=== PATIENT | male | born 1965 | race African-American/Black ===

== ENCOUNTER 2020-07-12 12:08 | Outpatient (REF) | payer MEDICARE, MEDICAID, SELFPAY ==
[2020-07-12 12:36] LABS: COVID-19 Test Negative (Negative)
== END 2020-07-12 12:09 | disposition home or self-care (01) ==
LOC: HO.LAB 12:08
PROVIDERS: Visit Provider Internal Medicine
DX: Z20.828 Contact with and (suspected) exposure to other viral communicable diseases (principal)
CPT/HCPCS: 87635

== ENCOUNTER 2020-07-19 10:42 | Outpatient (REF) | payer MEDICARE, MEDICAID, SELFPAY ==
[2020-07-19 11:23] LABS: COVID-19 Test Negative (Negative)
== END 2020-07-19 10:43 | disposition home or self-care (01) ==
LOC: HO.LAB 10:42
PROVIDERS: Visit Provider Internal Medicine
DX: Z20.828 Contact with and (suspected) exposure to other viral communicable diseases (principal)
CPT/HCPCS: 87635

== ENCOUNTER 2020-10-03 09:10 | Emergency (ER) | payer MEDICARE, MEDICAID, SELFPAY ==
--- NOTE | 2020-10-03 09:15 | XR_ITS ---
EXAMINATION: XR FOOT, RIGHT CLINICAL INFORMATION: Right foot pain. COMPARISON: None TECHNIQUE: AP, lateral, and oblique views of the right foot. FINDINGS: There is mild hallux valgus deformity first MTP joint. No visible acute fracture, dislocation or subluxation seen. There is mild loss of second and third tarsometatarsal joint space likely degenerative arthritic changes. No visible acute fracture or dislocation seen. The soft tissues are normal. XR/XR foot RT min 3V IMPRESSION: Mild degenerative changes second and third tarsometatarsal joint space. No visible acute fracture or dislocation seen.
[2020-10-03 09:31] VITALS: BP 140/87; PULSE 68; RESP 14; TEMP 36.4; O2SAT 95; BMI 36.6
--- NOTE | 2020-10-03 09:48 | ED.LOWEXIN ---
HPI - Extremity Injury (Lower) General Chief Complaint: Extremity Injury, Lower Stated Complaint: rt foot inj Time Seen by Provider: 10/03/20 09:15 Source: patient Mode of arrival: ambulatory Limitations: no limitations History of Present Illness HPI Narrative: 54-year-old male presenting to the ED after he tripped on some wires and injured his right foot now with pain to the base of the 5th metatarsal of the right foot. Denies any other injuries complaints or concerns. Denies head injury or loss of consciousness. Related Data Previous Rx's Medication Instructions Recorded ibuprofen 800 mg PO Q8H PRN #14 tab 10/03/20 Allergies Allergy/AdvReac Type Severity Reaction Status Date / Time GREGG Inhibitors Allergy Severe ANAPHYLAXIS Unverified 06/14/20 15:39 [GREGG INHIBITORS] lisinopril Allergy Unknown Verified 12/06/18 00:00 gregg inhibitors Allergy Unknown Uncoded 12/06/18 00:00 Review of Systems Review of Systems: Constitutional : No changes in activity, No lethargy ENT/Mouth : No Ear Pain, No Nasal discharge/drainage Eyes: No Eye Pain, No Swelling, No Redness, No Foreign Body, No Vision Changes Cardiovascular : No Chest Pain, No SOB Respiratory : No Cough Gastrointestinal : No Nausea, No Vomiting, No abdominal Pain Genitourinary : No Dysuria, No Urinary Frequency, No Urinary Incontinence, No Urgency, No Flank Pain Musculoskeletal : + joint pain, No neck stiffness, No back pain/injury Skin : No lacerations Neuro : No unsteady gait, No Paresthesias, No Loss of Consciousness, No altered mental status, No Headache Yes all other systems are reviewed and are negative [facility] Past Medical History Attestation statement: The following information was validated with the patient. Surgical History H/O shoulder surgery H/O wrist surgery Hx of foot surgery Hx of hernia repair Social History Social History Advance Directives: No Advance Directives Information Provided: No Physical Exam Vital Signs: Vital Signs: Last Vital Signs Temp 97.5 F 10/03/20 09:31 Pulse 68 10/03/20 09:31 Resp 14 10/03/20 09:31 BP 140/87 H 10/03/20 09:31 Pulse Ox 95 10/03/20 09:31 Body Mass Index 36.6 Vital signs have been reviewed as normal and appeared to be correct. Blood pressure normal. Heart rate normal. Respiration rate normal. Temperature normal. Oxygen saturation normal. Appearance: Alert. Oriented. No acute distress. Head: Normal external exam. Normocephalic. Atraumatic. Able to rotate head bilaterally. Eyes: PERRLA. EOMI. No nystagmus noted. Conjunctiva and sclera normal. Eyelids normal. Corneal reflex normal. ENT: EAC normal. No nasal discharge noted. TM's Normal. Hearing normal. Pharynx normal. Uvula midline. tongue midline. Moist mucous membranes. No trismus noted. No drooling noted. No muffled voice noted. Neck: Normal inspection. Neck supple. FROM. Nontender. CVS: Normal heart rate and rhythm. Heart sound normal. Pulses normal throughout. Respiratory: No respiratory distress. Painless inspiration. Breath sounds normal. No wheezes/rales/rhonchi noted. Chest nontender. Abdomen: Soft and nontender. Bowel sounds normal in all 4 quadrants. No distention noted. No organomegaly noted. No visible injury noted. Back: No tenderness noted. Full range of motion noted. Skin: Skin warm and dry. Normal skin color. Normal skin turgor. No rashes/lesions/lacerations noted. Extremities: At the base of the right 5th metatarsal patient has mild soft tissue swelling and tenderness to palpation. No obvious deformities noted. all Extremities exhibit normal range of motion and all other Extremities are nontender. Neuro: Oriented X 3. No motor deficit. No sensory deficit. Reflexes normal. Moving all extremities. No focal motor deficits. Speech normal. Gait normal. Strength 5/5 throughout. Muscle tone normal throughout. Course Course Course Narrative: 54-year-old male presenting to the ED with complaints of right foot pain/swelling after he tripped on some wires. Denies head injury or loss of consciousness. Has a normal steady gait no obvious deformities. Awaiting x-ray. Will re-evaluate. Reevaluation(s) Reevaluation #1: X-ray negative for any acute processes will DC home with symptomatic treatment alone instructions return if any new or worsening symptoms to follow up with primary care provider. Patient understands agrees the plan. Time: 10:24 MDM - Extremity Injury (Lower) Medical Records Attestation: I reviewed the patient's medical records. Imaging Data Right foot x-ray: Attestation: I personally reviewed and interpreted this imaging study as follows: Radiologist's impression: FINDINGS: There is mild hallux valgus deformity first MTP joint. No visible acute fracture, dislocation or subluxation seen. There is mild loss of second and third tarsometatarsal joint space likely degenerative arthritic changes. No visible acute fracture or dislocation seen. The soft tissues are normal. XR/XR foot RT min 3V IMPRESSION: Mild degenerative changes second and third tarsometatarsal joint space. No visible acute fracture or dislocation seen. Discharge Plan Discharge Clinical Impression: Foot sprain Patient Disposition: Home, Self-Care Instructions: Foot Sprain (ED) Prescriptions: New ibuprofen 800 mg tablet 800 mg PO Q8H PRN (Reason: pain) Qty: 14 RF: 0 Referrals: Balbir Childs MD [Physician] - 2 weeks (if symptoms persist longer than 2-3 weeks ) Print Language: Croatian
== END 2020-10-03 10:32 | disposition home or self-care (01) ==
PROVIDERS: Emergency Provider Emergency Medicine
DX: S93.601A Unspecified sprain of right foot, initial encounter (principal); M79.671 Pain in right foot; W01.0XXA Fall on same level from slipping, tripping and stumbling without subsequent striking against object, initial encounter; Y93.9 Activity, unspecified; Y92.9 Unspecified place or not applicable; Y99.9 Unspecified external cause status
CPT/HCPCS: 73630; 99283

== ENCOUNTER 2022-01-12 13:27 | Emergency (ER) | payer MEDICARE, MEDICAID, SELFPAY ==
--- NOTE | ~2022-01-12 | XR_ITS ---
EXAMINATION: XR ANKLE, RIGHT CLINICAL INFORMATION: Posterior ankle pain COMPARISON: None TECHNIQUE: AP, lateral, and mortise views of the right ankle. FINDINGS: The bones and soft tissues are normal. No fracture. Alignment is anatomic. Joint spaces are maintained. No joint effusion. XR/XR ankle RT min 3V IMPRESSION: Normal right ankle.
[2022-01-12 13:31] VITALS: BP 128/92; PULSE 81; O2SAT 97
[2022-01-12 13:44] VITALS: BP 114/77; PULSE 82; RESP 18; TEMP 36.9; O2SAT 94; BMI 35.9
--- NOTE | 2022-01-12 14:06 | ED_ITS ---
HPI - Extremity Injury (Lower) General Chief Complaint: Extremity Injury, Lower Stated Complaint: r foot swelling Time Seen by Provider: 01/12/22 13:52 Source: patient and EMS Mode of arrival: EMS Limitations: no limitations History of Present Illness HPI Narrative: 56-year-old male with a history of diabetes presents to the ER with acute onset of posterior left foot and ankle pain that started yesterday when he was walking. He states the pain has been getting worse and migrated to the front of his ankle and foot. He is now unable to bear any weight on his right foot. He was walking when the pain started and denies hearing any pops or snaps. He denies twisting a rolling his ankle. He is concerned about an Achilles tendon tear or rupture and would like an MRI. MD complaint: ankle injury and foot injury Onset (ago): day(s) (1) Injury: Right: ankle and foot Type of Injury: unknown Place: home Severity: severe Severity scale (1-10): 9 Relieving factors: cold therapy, immobilization and rest Exacerbating factors: weight bearing, movement and palpation Context: walking Associated symptoms: unable to bear weight Other symptoms: none Treatments prior to arrival: cold therapy Related Data Previous Rx's Medication Instructions Recorded ibuprofen 800 mg tablet 800 mg PO Q8H PRN #14 tab 10/03/20 Allergies Allergy/AdvReac Type Severity Reaction Status Date / Time GREGG Inhibitors Allergy Severe ANAPHYLAXIS Unverified 06/14/20 15:39 [GREGG INHIBITORS] lisinopril Allergy Unknown Anaphylaxis Verified 01/12/22 13:46 gregg inhibitors Allergy Unknown Anaphylaxis Uncoded 01/12/22 13:46 Review of Systems Review of Systems: Constitutional: No Fever, No Chills ENT/Mouth: No sore throat, No Rhinorrhea Cardiovascular: No Chest Pain, No SOB, No Orthopnea, No Edema Respiratory: No Cough, No Sputum, No Wheezing, No dyspnea Gastrointestinal: No Nausea, No Vomiting, No abdominal Pain, Musculoskeletal: + joint pain, + Myalgias Skin: No Skin Lesions, No rash Neuro: No Weakness, No Numbness, No Dizziness, No Headache Psych: + Anxiety/Panic, No Depression Heme/Lymph: No Bruising, No Lymphadenopathy PMFSH Past Medical History Surgical History H/O shoulder surgery H/O wrist surgery Hx of foot surgery Hx of hernia repair Social History Social History Advance Directives: No Advance Directives Information Provided: No Physical Exam Vital Signs: Vital Signs: Last Vital Signs Temp 98.4 F 01/12/22 13:44 Pulse 82 01/12/22 13:44 Resp 18 01/12/22 13:44 BP 114/77 01/12/22 13:44 Pulse Ox 94 01/12/22 13:44 BMI result Body Mass Index 35.9 Appearance: Alert. Oriented X3. No acute distress. HEENT: normal inspection CVS: Normal heart rate and rhythm. Pulses normal. Respiratory: No respiratory distress. Skin: Skin warm and dry. Normal skin color. Normal skin turgor. No rashes. Extremities: Normal inspection of the bilateral feet and ankles. Posterior right ankle is tender at the Achilles insertion site. Negative Day test with palpable Achilles tendon intact. No calf tenderness. No swelling of the ankle or foot. Normal range of motion with weakness with plantar flexion and dorsiflexion. Neuro: Oriented X 3. No motor deficit. No sensory deficit. Gait not tested due to pain Course Course Course Narrative: 56-year-old male presents to the ER with posterior right foot and ankle pain that started yesterday while walking and is now radiating to the front of the ankle and foot to the point where he is unable to bear weight on the right foot. Denies any blunt trauma, inversion or eversion injury. No evidence of diabetic foot wound on evaluation. His Achilles tendon appears to be intact with a negative Day test. Will get x-rays for further evaluation. He will most likely need outpatient follow-up with Orthopedics. Reevaluation(s) Reevaluation #1: x-ray is unremarkable. Will place patient in splint given he is unable to bear weight and there was concern for a possible partial Achilles tendon injury. Will refer to orthopedics for evaluation this week. Stable for discharge home with pain control, immobilization and weight-bearing as tolerated status. Patient agrees with plan and is stable for DC. Procedures Orthopedic Splinting/Casting Injury #1: Side: right Lower Extremity Injury Location: lower leg Lower Extremity Immobilizer: posterior splint Other Orthopedic Equipment: crutches Critical Care Time Critical Care Time Critical Care Time: No Discharge Plan Discharge Clinical Impression: Acute foot pain Patient Disposition: Home, Self-Care Instructions: Arthralgia (ED) Additional Instructions: Your x-rays today were normal. On examination your Achilles tendon is intact. Recommend following up with Orthopedics this week for further evaluation. You may bear weight as tolerated - if it is too painful, use the provided crutches Recommend wearing the splint until evaluated by Orthopedics. Take Tylenol 975 mg every 6 hours alternating with Motrin 600-800 mg every 8 hours (take with food). Elevate and ice your foot whenever possible. If you develop new or worsening symptoms call 911 or come back to the ER for further evaluation. Prescriptions: No Action ibuprofen 800 mg tablet 800 mg PO Q8H PRN (Reason: pain) Qty: 14 0RF Referrals: Ramsey Neff PA-C [Physician Regulatory Specialist] - 2 days (right posterior foot pain, possible partial achilles tendon tear?) Stand Alone Forms: Work/School Release
== END 2022-01-12 16:01 | disposition home or self-care (01) ==
PROVIDERS: Emergency Provider Emergency Medicine
DX: M79.671 Pain in right foot (principal); E11.9 Type 2 diabetes mellitus without complications
CPT/HCPCS: 73610; 99283; 99284

== ENCOUNTER → 2022-01-23 10:23 | Outpatient (BNVA) | payer MEDICARE, MEDICAID, SELFPAY | PROVIDERS: Visit Provider Orthopaedic Surgery | DX: M79.671 Pain in right foot (principal) | CPT/HCPCS: 99212 ==

== ENCOUNTER 2022-08-09 09:02 | Emergency (ER) | payer MEDICARE, MEDICAID, SELFPAY ==
--- NOTE | ~2022-08-09 | XR_ITS ---
EXAMINATION: XR CHEST CLINICAL INFORMATION: Shortness of breath COMPARISON: None TECHNIQUE: AP portable view of the chest was obtained. FINDINGS: Linear scarring is seen at both lung bases. No confluent parenchymal disease is identified. No pneumothorax or pleural effusion. Heart normal size. No evidence of pulmonary edema. XR/XR chest 1V IMPRESSION: No significant acute parenchymal disease.
[2022-08-09 09:04] VITALS: BP 129/77; PULSE 80; RESP 16; TEMP 36.8; BMI 34.5
[2022-08-09 09:19] LABS: MANUAL DIFF FLAG NO
[2022-08-09 09:20] LABS: Basophils Percent Auto 0.6 % (0-2); Eosinophils Absolute Auto 0.1 X10*3/uL (0.0-0.4); Eosinophils Percent Auto 1.3 % (0-4); Hematocrit 36.1 % (42.0-52.0); Hemoglobin 12.8 g/dl (14.0-18.0); Imm Gran Abs Auto 0.02 X10*3/uL (0.00-0.03); Imm Gran Pct Auto 0.4 % (0.0-0.4); Lymphocytes Absolute Auto 2.1 X10*3/uL (1.2-4.9); Lymphocytes Percent Auto 39.4 % (20-40); Mean Corpuscular HGB Conc 35.5 g/dl (31.0-36.0); Mean Corpuscular Hemoglobin 28.2 pg (27.0-33.0); Mean Corpuscular Volume 79.5 fL (80.0-98.0); Mean Platelet Volume 8.7 fL (9.4-12.4); Monocytes Absolute Auto 0.4 X10*3/uL (0.1-1.2); Monocytes Percent Auto 8.2 % (2-11); Neutrophils Absolute Auto 2.7 x10*3/uL (2.0-8.3); Neutrophils Percent Auto 50.1 % (45-73); Platelet Count 289 X10*3/uL (160-400); Red Blood Count 4.54 X10*6/uL (4.60-5.80); Red Cell Distribution Width 14.3 % (11.0-16.0); White Blood Count 5.4 X10*3/uL (4.8-10.8)
[2022-08-09 09:34] LABS: Anion Gap 16 (12-20); Blood Urea Nitrogen 27 mg/dL (9-16); Calcium 9.7 mg/dL (8.4-10.2); Carbon Dioxide 27 mmol/L (22-29); Chloride 97 mmol/L (96-108); Creatinine Clr Calc Pharmacy 60.2; Estimated Glomerular Filt Rate 39; Glucose Random 140 mg/dL (60-115); Potassium 3.5 mmol/L (3.3-5.1); Sodium 136 mmol/L (135-145)
[2022-08-09 09:42] LABS: COVID-19 Test Negative (Negative); IDNOW Serial# 16C4AD1C; Troponin-I High Sensitivity < 3.5 ng/L (<3.5-35.0)
--- NOTE | 2022-08-09 09:53 | ED.GENADULT ---
HPI - General Adult General Chief complaint: Dyspnea Stated complaint: diff breathing Time Seen by Provider: 08/09/22 09:23 Source: patient Mode of arrival: ambulatory Limitations: no limitations History of Present Illness HPI narrative: 56-year-old male with history of diabetes and hypertension presented with 1 week of left-sided pleuritic chest pain. Left-sided chest pain started about a week ago pain is worsening with taking a deep breath nothing relieves the pain, patient did not have lower extremity swelling or tenderness, no recent travel, no history of PE or DVT. Patient been having a mild coughing with no production of sputum, no fever or chills. Patient has been taking Tylenol for relieving the pain and be able to breathe. History of partial nephrectomy. Related Data Previous Rx's Medication Instructions Recorded ibuprofen 800 mg tablet 800 mg PO Q8H PRN pain #14 tabs 10/03/20 oxycodone 5 mg tablet 5 mg PO BID PRN pain #10 tabs 08/09/22 Allergies Allergy/AdvReac Type Severity Reaction Status Date / Time GREGG Inhibitors Allergy Severe ANAPHYLAXIS Unverified 01/23/22 10:36 [GREGG INHIBITORS] lisinopril Allergy Unknown Anaphylaxis Verified 01/23/22 10:36 gregg inhibitors Allergy Unknown Anaphylaxis Uncoded 01/23/22 10:36 Review of Systems Review of Systems: All other systems are reviewed and are negative Constitutional: Reports as per HPI and Reports no additional constitutional complaints Eyes: Reports as per HPI and Reports no additional eye complaints Reports system reviewed and no additional complaints, except as documented Cardiovascular: Reports as per HPI and Reports no additional cardiovascular complaints Respiratory: Reports as per HPI and Reports no additional respiratory complaints Gastrointestinal: Reports as per HPI and Reports no additional gastrointestinal complaints Genitourinary: Reports no additional female genitourinary complaints Musculoskeletal: Reports no additional musculoskeletal complaints Skin/Breast: Reports system reviewed and no additional complaints, except as docu Psychiatric: Reports no additional psychiatric complaints Endocrine: Reports no additional endocrine complaints Hematologic/Lymphatic: Reports no additional hematologic/lymphatic complaints Allergic/Immunologic: Reports no additional allergic/immunologic complaints Reports system reviewed and no additional complaints, except as documented and Reports Abnormal speech present [facility] Past Medical History Medical History Diabetes High blood pressure Surgical History H/O shoulder surgery H/O wrist surgery Hx of foot surgery Hx of hernia repair Social History Social History Alcohol intake: never Patient Tobacco Use Status: Never used Tobacco Smoked in Last 30 Days: No Use of substances other than those prescribed or required for medical reasons: No Advance Directives: No Advance Directives Information Provided: No Current occupational status: employed 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 Blood pressure normal. Heart rate normal. Respiration rate normal. Temperature normal. Oxygen saturation normal. Appearance: Alert. Oriented X3. No acute distress. Head: Normal external exam. Normocephalic. Atraumatic. No Fajardo signs noted. No raccoon eyes noted Eyes: PERRLA. EOMI. Conjunctiva and sclera normal. Eyelids normal. ENT: TM's Normal. Pharynx normal. Uvula midline. Moist mucous membranes. No trismus noted. No drooling noted. No muffled voice noted. Neck: Normal inspection. Neck supple. FROM. No adenopathy. Thyroid Normal. No meningeal signs. No neck mass noted. CVS: Normal heart rate and rhythm. Heart sound normal. No murmurs noted. Pulses normal throughout. Respiratory: No respiratory distress. Painless inspiration. Breath sounds normal. No wheezes/rales/rhonchi noted. Chest nontender. No accessory muscle usage noted or decreased air movement noted. Abdomen: Soft and nontender. Bowel sounds normal in all 4 quadrants. No distention noted. No organomegaly noted. No visible injury noted. Back: No CVA tenderness. Full range of motion noted. Skin: Skin warm and dry. Normal skin color. Normal skin turgor. No rashes/lesions/lacerations noted. Extremities: No lower extremity edema. Extremities exhibit normal range of motion. Extremities nontender. Neuro: Oriented X 3. Cranial nerve exam: II-XII are grossly intact No motor deficit. No sensory deficit. Reflexes normal. Course Course Course Narrative: 56-year-old male came in for 1 week of left chest pleuritic pain only with respiration, patient has unremarkable workup and chest x-ray, pain is likely secondary to pleurisy, no risk for PE or DVT with a negative D-dimer, patient has been taking NSAIDs because patient had history of partial nephrectomy and elevation of her renal function test patient was advised not to take NSAIDs, patient has been taking Tylenol for the last week I would prescribe oxycodone to help with pain and avoid using too much of Tylenol. Medications Administered Discontinued Medications Generic Name Dose Route Start Last Admin Trade Name Alvinoq PRN Reason Stop Dose Admin Morphine Sulfate 2 mg 08/09/22 09:52 08/09/22 11:20 Morphine Sulfate 2 Mg/Ml Cartridge IVPUSH 08/09/22 09:53 2 mg ONCE ONE Administration Protocol Medical Decision Making Lab Data Lab results reviewed: Yes I reviewed the patient's lab results. Result diagrams: 08/09/22 09:14 08/09/22 09:14 Labs: Lab Results 08/09/22 08/09/22 08/09/22 Range/Units 09:14 09:14 09:14 WBC 5.4 (4.8-10.8) X10*3/uL RBC 4.54 L (4.60-5.80) X10*6/uL Hgb 12.8 L (14.0-18.0) g/dl Hct 36.1 L (42.0-52.0) % MCV 79.5 L (80.0-98.0) fL MCH 28.2 (27.0-33.0) pg MCHC 35.5 (31.0-36.0) g/dl RDW 14.3 (11.0-16.0) % Plt Count 289 (160-400) X10*3/uL MPV 8.7 L (9.4-12.4) fL Immature Gran % (Auto) 0.4 (0.0-0.4) % Neut % (Auto) 50.1 (45-73) % Lymph % (Auto) 39.4 (20-40) % Charles % (Auto) 8.2 (2-11) % Eos % (Auto) 1.3 (0-4) % Baso % (Auto) 0.6 (0-2) % Lymph # (Auto) 2.1 (1.2-4.9) X10*3/uL Charles # (Auto) 0.4 (0.1-1.2) X10*3/uL Eos # (Auto) 0.1 (0.0-0.4) X10*3/uL Baso # (Auto) 0.0 (0.0-0.2) X10*3/uL Abs Immat Gran (auto) 0.02 (0.00-0.03) X10*3/uL Absolute Neuts (auto) 2.7 (2.0-8.3) x10*3/uL Absolute Nucleated RBC 0.000 (0.0-0.012) X10*3/uL Nucleated RBC % (auto) 0.0 (0.0-0.2) /100WBC D-Dimer High Sensitivty NG/ML Sodium 136 (135-145) mmol/L Potassium 3.5 (3.3-5.1) mmol/L Chloride 97 (96-108) mmol/L Carbon Dioxide 27 (22-29) mmol/L Anion Gap 16 (12-20) BUN 27 H (9-16) mg/dL Creatinine 1.82 H (0.5-1.4) mg/dL Estim Creat Clear Calc 60.2 Estimated GFR 39 Random Glucose 140 H (60-115) mg/dL Calcium 9.7 (8.4-10.2) mg/dL Troponin I High Sens < 3.5 (<3.5-35.0) ng/L B-Natriuretic Peptide (<100) pg/mL COVID-19 (ALINE) (Negative) COVID-19 Clin Com 08/09/22 08/09/22 08/09/22 Range/Units 09:14 10:25 10:25 WBC (4.8-10.8) X10*3/uL RBC (4.60-5.80) X10*6/uL Hgb (14.0-18.0) g/dl Hct (42.0-52.0) % MCV (80.0-98.0) fL MCH (27.0-33.0) pg MCHC (31.0-36.0) g/dl RDW (11.0-16.0) % Plt Count (160-400) X10*3/uL MPV (9.4-12.4) fL Immature Gran % (Auto) (0.0-0.4) % Neut % (Auto) (45-73) % Lymph % (Auto) (20-40) % Charles % (Auto) (2-11) % Eos % (Auto) (0-4) % Baso % (Auto) (0-2) % Lymph # (Auto) (1.2-4.9) X10*3/uL Charles # (Auto) (0.1-1.2) X10*3/uL Eos # (Auto) (0.0-0.4) X10*3/uL Baso # (Auto) (0.0-0.2) X10*3/uL Abs Immat Gran (auto) (0.00-0.03) X10*3/uL Absolute Neuts (auto) (2.0-8.3) x10*3/uL Absolute Nucleated RBC (0.0-0.012) X10*3/uL Nucleated RBC % (auto) (0.0-0.2) /100WBC D-Dimer High Sensitivty < 150 NG/ML Sodium (135-145) mmol/L Potassium (3.3-5.1) mmol/L Chloride (96-108) mmol/L Carbon Dioxide (22-29) mmol/L Anion Gap (12-20) BUN (9-16) mg/dL Creatinine (0.5-1.4) mg/dL Estim Creat Clear Calc Estimated GFR Random Glucose (60-115) mg/dL Calcium (8.4-10.2) mg/dL Troponin I High Sens (<3.5-35.0) ng/L B-Natriuretic Peptide < 10 (<100) pg/mL COVID-19 (ALINE) Negative (Negative) COVID-19 Clin Com See Note Imaging Data Chest x-ray: Attestation: I personally reviewed and interpreted this imaging study as follows: Radiologist's impression: No significant acute parenchymal disease. Discharge Plan Discharge Clinical Impression: Pleurisy Patient Disposition: Home, Self-Care Instructions: Pleurisy (ED) Prescriptions: New oxycodone 5 mg tablet 5 mg PO BID PRN (Reason: pain) Qty: 10 0RF Rx Instructions: Partial Fill upon patient request. No Action ibuprofen 800 mg tablet 800 mg PO Q8H PRN (Reason: pain) Qty: 14 0RF Referrals: Jeet Florez PA [Primary Care Provider] - Interventions: ED Discharge Assessment Last Done: 08/09/22 13:45
[2022-08-09 10:38] LABS: D Dimer High Sensitivity < 150 NG/ML
[2022-08-09 10:46] VITALS: BP 124/72; PULSE 64; RESP 14; TEMP 36.6; O2SAT 96
[2022-08-09 10:48] LABS: B Type Natriuretic Peptide < 10 pg/mL (<100)
[2022-08-09] MEDS: Morphine Sulfate 2 MG/ML CARTRIDGE IVPUSH (11:20)
[2022-08-09 12:43] VITALS: BP 123/79; PULSE 56; RESP 14; TEMP 36.5; O2SAT 95
--- NOTE | 2022-08-09 13:35 | PC.NURSE ---
pt is a/o x 4 no sob/danny noted lungs - cta. speaks in full sentences. heart sounds regular. abd obese, soft and non-tender. bs + x 4 quads no edema noted.
== END 2022-08-09 13:45 | disposition home or self-care (01) ==
PROVIDERS: Emergency Provider Emergency Medicine; PCP Physician Assistant Medical
DX: R09.1 Pleurisy (principal); R06.00 Dyspnea, unspecified; E11.9 Type 2 diabetes mellitus without complications; I10 Essential (primary) hypertension; Z20.822 Contact with and (suspected) exposure to COVID-19
CPT/HCPCS: 36415; 71045; 80048; 83880; 84484; 85025; 85379; 87635; 96374; 99284; J2270

== ENCOUNTER 2022-08-28 06:52 | Emergency (ER) | payer MEDICARE, MEDICAID, SELFPAY ==
--- NOTE | ~2022-08-28 | XR_ITS ---
EXAMINATION: XR FOOT, LEFT CLINICAL INFORMATION: Left foot pain. COMPARISON: 11/11/2011 left foot radiographs. TECHNIQUE: AP, lateral, and oblique views of the left foot. FINDINGS: Surgical changes are seen in the first digit with decreased hallux valgus angulation. There is no acute fracture or dislocation. The tarsal bones are normally aligned. There is mild soft tissue swelling. XR/XR foot LT 2V IMPRESSION: 1. Interval improvement in hallux valgus angulation with presumed corrective postsurgical changes. 2. Mild soft tissue swelling without acute underlying osseous abnormality.
[2022-08-28 06:55] VITALS: BP 103/59; PULSE 79; RESP 18; TEMP 36.8; O2SAT 95; BMI 32.5
--- NOTE | 2022-08-28 07:48 | ED.LOWEXIN ---
HPI - Extremity Injury (Lower) General Chief Complaint: Extremity Injury, Lower Stated Complaint: l foot pain Time Seen by Provider: 08/28/22 07:38 Source: patient Mode of arrival: ambulatory History of Present Illness HPI Narrative: 56-year-old male presents to the ED tests morning complaining of left foot pain. States he has been diagnosed with ?arthralgia? previously. States this has been going on for ?quite some time. ? Has a underground bolting machine operator who I saw approximately 1 month ago, but not for this problem. Pain is located over the dorsum of the foot, and laterally. Denies any injuries. Pain is described as an ache, and is constant. It does not radiate. Severity: moderate Relieving factors: nothing Exacerbating factors: weight bearing and movement Related Data Previous Rx's Medication Instructions Recorded ibuprofen 800 mg tablet 800 mg PO Q8H PRN pain #14 tabs 10/03/20 oxycodone 5 mg tablet 5 mg PO BID PRN pain #10 tabs 08/09/22 tramadol 50 mg tablet 50 mg PO Q8H PRN pain (scale score 08/28/22 4-6) #10 tabs Allergies Allergy/AdvReac Type Severity Reaction Status Date / Time GREGG Inhibitors Allergy Severe ANAPHYLAXIS Unverified 01/23/22 10:36 [GREGG INHIBITORS] lisinopril Allergy Unknown Anaphylaxis Verified 01/23/22 10:36 gregg inhibitors Allergy Unknown Anaphylaxis Uncoded 01/23/22 10:36 Review of Systems Constitutional: Constitutional: Denies chills and Denies fever(s) ENT: Denies dizziness Cardiovascular: Cardiovascular: Denies chest pain and Denies dyspnea Respiratory: Respiratory: Denies cough and Denies dyspnea Musculoskeletal: Musculoskeletal: Denies muscle cramps, Denies muscle weakness and Denies numbness Neurologic: Denies Abnormal speech present, Denies dizziness and Denies numbness PMFSH Past Medical History Medical History Diabetes High blood pressure Surgical History H/O shoulder surgery H/O wrist surgery Hx of foot surgery Hx of hernia repair Social History Social History Alcohol intake: never Patient Tobacco Use Status: Never used Tobacco Advance Directives: No Current occupational status: employed 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 Physical Exam Vital Signs: Vital Signs: Last Vital Signs Temp 98.3 F 08/28/22 06:55 Pulse 79 08/28/22 06:55 Resp 18 08/28/22 06:55 BP 103/59 L 08/28/22 06:55 Pulse Ox 95 08/28/22 06:55 O2 Del Method 08/28/22 06:55 BMI result Body Mass Index 32.5 Vital signs reviewed and are normal Const: General: cooperative and no acute distress Orientation/consciousness: patient oriented x3 HEENT: Head: Yes normal to inspection Skin: General skin exam: no rashes or lesions noted and no pallor Neuro: General: patient oriented x3 Cranial nerves: Yes CN's II-XII intact bilaterally Cognition (Neuro): normal cognition Speech: No Abnormal speech present Extrem: Ankle/foot/toe images: 1. Tender 2. Tender MDM - Extremity Injury (Lower) MDM Narrative Medical decision making narrative: 56-year-old male with chronic foot problems presented to the emergency department today with foot pain in the left. There is minimal swelling. There is some tenderness. X-rays were performed which do not show any acute pathology. The patient does have a underground bolting machine operator, and will be advised to follow-up with them. Additionally, he will be given a small prescription for tramadol. Medical Records Attestation: I reviewed the patient's medical records. Imaging Data x-ray left foot: Radiologist's impression: IMPRESSION: ? 1. Interval improvement in hallux valgus angulation with presumed corrective postsurgical changes. 2. Mild soft tissue swelling without acute underlying osseous abnormality Discharge Plan Discharge Clinical Impression: Chronic foot pain Qualifiers: Laterality: left Qualified Code(s): M79.672 - Pain in left foot Patient Disposition: Home, Self-Care Instructions: Chronic Pain (ED), Arthralgia (ED) Additional Instructions: Although your xray was not diagnostic of anything serious, if your pain continues after using the tramadol for several days, you should follow up with your underground bolting machine operator. Call today to schedule an appointment. Prescriptions: New tramadol 50 mg tablet 50 mg PO Q8H PRN (Reason: pain (scale score 4-6)) Qty: 10 0RF No Action ibuprofen 800 mg tablet 800 mg PO Q8H PRN (Reason: pain) Qty: 14 0RF oxycodone 5 mg tablet 5 mg PO BID PRN (Reason: pain) Qty: 10 0RF Rx Instructions: Partial Fill upon patient request.
== END 2022-08-28 09:03 | disposition home or self-care (01) ==
PROVIDERS: Emergency Provider Emergency Medicine; PCP Physician Assistant Medical
DX: G89.29 Other chronic pain (principal); M79.672 Pain in left foot; E11.9 Type 2 diabetes mellitus without complications; I10 Essential (primary) hypertension
CPT/HCPCS: 73620; 99282; 99283

== ENCOUNTER 2022-10-06 03:37 | Inpatient (IN) | payer MEDICARE, MEDICAID, SELFPAY ==
[2022-10-06] VITALS (9 sets, daily range): BP systolic 122–158; BP diastolic 74–98; PULSE 63–84; RESP 14–20; TEMP 36.4–36.8; O2SAT 96–98; BMI 31.8
--- NOTE | ~2022-10-06 | XR_ITS ---
EXAMINATION: XR HAND, LEFT CLINICAL INFORMATION: Crush injury to third and fourth finger COMPARISON: None TECHNIQUE: PA, lateral, and oblique views of the left hand. XR/XR hand LT 2V FINDINGS/IMPRESSION: Acute comminuted minimally displaced fractures of the third and fourth distal phalangeal franklyn, slightly more pronounced involving the fourth digit. Associated soft tissue swelling is present. No radiopaque foreign bodies.
--- NOTE | ~2022-10-06 | CT_ITS ---
EXAMINATION: CT ABDOMEN AND PELVIS WITHOUT CONTRAST CLINICAL INFORMATION: Left flank pain COMPARISON: 01/31/2016 TECHNIQUE: Multidetector volumetric imaging was performed from the superior aspect of the liver through the pubic symphysis. Sagittal and coronal reformatted images were obtained on the technologist's workstation. This CT examination was performed using dose optimization techniques as appropriate, variously including the following: *Automated exposure control *Adjustment of mA and/or kV according to patient size (this includes techniques or standardized protocols for targeted exams where dose is matched to indication/reason for exam; i.e. extremities or head) *Use of iterative reconstruction technique DLP: 915 mGy-cm FINDINGS: LUNG BASES: The visualized lung bases are unremarkable. LIVER, GALLBLADDER, AND BILIARY TREE: The liver is normal in size, shape, and attenuation. No focal hepatic lesion or biliary ductal dilatation is present. The gallbladder is unremarkable with no evidence of radiopaque gallstones, gallbladder wall thickening, or obvious pericholecystic inflammatory changes. PANCREAS: Unremarkable. SPLEEN: Unremarkable. ADRENAL GLANDS: Unremarkable. KIDNEYS AND URETERS: The kidneys are normal in size, shape, and attenuation. There is a 1.3 cm simple appearing cyst in the lower pole left kidney. No follow-up required. Linear calcification along the posterior interpolar cortex of left kidney presumably dystrophic related to previous infectious insult. No hydronephrosis, hydroureter, or calculi seen. No perinephric stranding. BLADDER: Unremarkable. GASTROINTESTINAL TRACT: Pancolonic diverticulosis, most concentrated within sigmoid colon. No evidence of diverticulitis. Normal appendix. Small sliding-type hiatal hernia. Stomach otherwise unremarkable. Normal small bowel. ABDOMINAL WALL: Small fat-containing umbilical hernia and epigastric midline ventral abdominal wall hernia, neither with associated inflammation. LYMPH NODES: Normal. VASCULAR: Unremarkable. PELVIC VISCERA: Unremarkable. OSSEOUS STRUCTURES: No acute or suspicious osseous abnormalities. CT/CT abdomen pelvis wo IV con IMPRESSION: * No urinary calculi or hydronephrosis. * Pancolonic diverticulosis, most concentrated within sigmoid colon. No evidence of diverticulitis. Fleischner guidelines were followed.
--- NOTE | 2022-10-06 04:02 | ED_ITS ---
HPI - General Adult General Chief complaint: Back Pain/Injury Stated complaint: pain in lower left side, does not want x-ray Time Seen by Provider: 10/06/22 03:50 Source: patient and family Mode of arrival: ambulatory Limitations: no limitations History of Present Illness HPI narrative: 56-year-old male came in for evaluation of left flank pain started a week ago. Patient with history of kidney malignancy with partial nephrectomy on the left side, patient also had family history with pancreatic cancer patient is concerned of pancreatic cancer, patient had a yearly follow-up MRI last week done at [facility] (official result was requested) reportedly by the patient was told everything was okay. Patient declined any blood in the urine. Patient also jammed his left hand and the garage door 2 days ago been complaining of left middle and ring finger pain. Related Data Home Medications Medication Instructions Recorded Confirmed chlorthalidone 25 mg tablet 1 tab PO DAILY 10/06/22 10/06/22 famotidine 20 mg tablet 1 tab PO BID 10/06/22 10/06/22 hydralazine 10 mg tablet 1 tab PO BID 10/06/22 10/06/22 metformin 500 mg tablet 2 tab PO BID 10/06/22 10/06/22 quetiapine 100 mg tablet 1 tab PO DAILY 10/06/22 10/06/22 quetiapine 200 mg tablet 1 tab PO BEDTIME 10/06/22 10/06/22 verapamil 360 mg 24 hr 1 cap PO DAILY 10/06/22 10/06/22 capsule,extended release Allergies Allergy/AdvReac Type Severity Reaction Status Date / Time GREGG Inhibitors Allergy Severe ANAPHYLAXIS Verified 10/06/22 03:43 [GREGG INHIBITORS] lisinopril Allergy Unknown Anaphylaxis Verified 10/06/22 03:43 gregg inhibitors Allergy Unknown Anaphylaxis Uncoded 01/23/22 10:36 Review of Systems Review of Systems: All other systems are reviewed and are negative Constitutional: Reports as per HPI and Reports no additional constitutional complaints Eyes: Reports as per HPI and Reports no additional eye complaints Reports system reviewed and no additional complaints, except as documented Cardiovascular: Reports as per HPI and Reports no additional cardiovascular complaints Respiratory: Reports as per HPI and Reports no additional respiratory complaints Gastrointestinal: Reports as per HPI and Reports no additional gastrointestinal complaints Genitourinary: Reports no additional female genitourinary complaints Musculoskeletal: Reports no additional musculoskeletal complaints Skin/Breast: Reports system reviewed and no additional complaints, except as docu Psychiatric: Reports no additional psychiatric complaints Endocrine: Reports no additional endocrine complaints Hematologic/Lymphatic: Reports no additional hematologic/lymphatic complaints Allergic/Immunologic: Reports no additional allergic/immunologic complaints Reports system reviewed and no additional complaints, except as documented and Reports Abnormal speech present [facility] Past Medical History Medical History (Updated 10/06/22 @ 05:54 by Parviz Gregg MD) Bipolar 1 disorder High blood pressure Hyperlipidemia Surgical History H/O shoulder surgery H/O wrist surgery Hx of foot surgery Hx of hernia repair Social History Social History Alcohol intake: current Alcohol intake frequency: holidays/special occasions only Alcohol type: beer Patient Tobacco Use Status: Never used Tobacco Smoked in Last 30 Days: No Use of substances other than those prescribed or required for medical reasons: No Advance Directives: No Advance Directives Information Provided: Yes Current occupational status: employed 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 Blood pressure normal. Heart rate normal. Respiration rate normal. Temperature normal. Oxygen saturation normal. Appearance: Alert. Oriented X3. No acute distress. Head: Normal external exam. Normocephalic. Atraumatic. No Fajardo signs noted. No raccoon eyes noted Eyes: PERRLA. EOMI. Conjunctiva and sclera normal. Eyelids normal. ENT: TM's Normal. Pharynx normal. Uvula midline. Moist mucous membranes. No trismus noted. No drooling noted. No muffled voice noted. Neck: Normal inspection. Neck supple. FROM. No adenopathy. Thyroid Normal. No meningeal signs. No neck mass noted. CVS: Normal heart rate and rhythm. Heart sound normal. No murmurs noted. Pulses normal throughout. Respiratory: No respiratory distress. Painless inspiration. Breath sounds normal . No wheezes/rales/rhonchi noted. Chest nontender. No accessory muscle usage noted or decreased air movement noted. Abdomen: Soft and nontender. Bowel sounds normal in all 4 quadrants. No distention noted. No organomegaly noted. No visible injury noted. Back: No CVA tenderness. Full range of motion noted. Skin: Skin warm and dry. Normal skin color. Normal skin turgor. No rashes/lesions/lacerations noted. Extremities: No lower extremity edema. Extremities exhibit normal range of motion. Extremities nontender. Neuro: Oriented X 3. Cranial nerve exam: II-XII are grossly intact No motor deficit. No sensory deficit. Reflexes normal. Course Course Course Narrative: Acute on chronic renal failure will admit for IV hydration and Nephrology consult. Left hand contusion with acute comminuted minimally displaced fracture of the 3rd and 4th distal phalangeal franklyn. Continue hydration and pain control of the left flank pain of unclear etiology Medications Administered Discontinued Medications Generic Name Dose Route Start Last Admin Trade Name Freq PRN Reason Stop Dose Admin Sodium Chloride 1,000 mls @ 999 mls/hr 10/06/22 04:35 10/06/22 04:59 Ns IV 10/06/22 05:35 999 mls/hr .Q1H1M ONE Administration Morphine Sulfate 4 mg 10/06/22 05:02 10/06/22 05:05 Morphine Sulfate 4 Mg/Ml Cartridge IVPUSH 10/06/22 05:03 4 mg ONCE ONE Administration Protocol Medical Decision Making Differential Diagnosis Differential Diagnoses: The differential diagnosis associated with the presentation includes (Kidney stone, diverticulitis, muscular pain, acute renal failure.) Admission/Observation Consideration of admission/observation: Escalation of care including admission/observation considered Consult Healthcare Provider Management of the patient was discussed with: Hospitalist Lab Data MDM Lab Attestation statement: I reviewed the patient's lab results. 10/06/22 04:02 10/06/22 04:02 Labs: Lab Results 10/06/22 10/06/22 Range/Units 04:02 04:02 WBC 8.2 (4.8-10.8) X10*3/uL RBC 4.09 L (4.60-5.80) X10*6/uL Hgb 11.4 L (14.0-18.0) g/dl Hct 32.9 L (42.0-52.0) % MCV 80.4 (80.0-98.0) fL MCH 27.9 (27.0-33.0) pg MCHC 34.7 (31.0-36.0) g/dl RDW 14.2 (11.0-16.0) % Plt Count 403 H D (160-400) X10*3/uL MPV 8.2 L (9.4-12.4) fL Immature Gran % (Auto) 0.4 (0.0-0.4) % Neut % (Auto) 50.9 (45-73) % Lymph % (Auto) 34.6 (20-40) % Ocean % (Auto) 11.1 H (2-11) % Eos % (Auto) 2.3 (0-4) % Baso % (Auto) 0.7 (0-2) % Lymph # (Auto) 2.8 (1.2-4.9) X10*3/uL Ocean # (Auto) 0.9 (0.1-1.2) X10*3/uL Eos # (Auto) 0.2 (0.0-0.4) X10*3/uL Baso # (Auto) 0.1 (0.0-0.2) X10*3/uL Abs Immat Gran (auto) 0.03 (0.00-0.03) X10*3/uL Absolute Neuts (auto) 4.2 (2.0-8.3) x10*3/uL Absolute Nucleated RBC 0.000 (0.0-0.012) X10*3/uL Nucleated RBC % (auto) 0.0 (0.0-0.2) /100WBC Sodium 134 L (135-145) mmol/L Potassium 3.7 (3.3-5.1) mmol/L Chloride 100 (96-108) mmol/L Carbon Dioxide 17 L (22-29) mmol/L Anion Gap 21 H (12-20) BUN 56 H D (9-16) mg/dL Creatinine 3.58 H (0.5-1.4) mg/dL Estim Creat Clear Calc 29.4 Estimated GFR 18 Random Glucose 94 (60-115) mg/dL Calcium 9.1 D (8.4-10.2) mg/dL Total Bilirubin 0.2 (0.0-1.0) mg/dL Direct Bilirubin < 0.2 (0.0-0.5) mg/dL AST 12 (5-37) U/L ALT 7 (0-40) U/L Alkaline Phosphatase 85 (39-117) U/L Total Protein 7.6 (6.5-8.0) g/dL Albumin 4.3 (3.5-5.0) g/dL Lipase 31 (8-78) U/L Independent Interpretation I performed an independent interpretation of an: Plain X-Ray (Left hand:Acute comminuted minimally displaced fractures of the third and fourth distal phalangeal franklyn, slightly more pronounced involving the fourth digit. Associated soft tissue swelling is present. No radiopaque foreign bodies. ) and CT Scan (* No urinary calculi or hydronephrosis. * Pancolonic diverticulosis, most concentrated within sigmoid colon. No evidence of diverticulitis. ) Radiology Impression Discussion of test interpretation with radiology: I have reviewed the radiologist's reading. Discharge Plan Discharge Clinical Impression: Acute on chronic kidney failure, Left hand fracture Patient Disposition: Admitted As Inpatient
[2022-10-06 04:07] LABS: Basophils Absolute Auto 0.1 X10*3/uL (0.0-0.2); Basophils Percent Auto 0.7 % (0-2); Eosinophils Absolute Auto 0.2 X10*3/uL (0.0-0.4); Eosinophils Percent Auto 2.3 % (0-4); Hematocrit 32.9 % (42.0-52.0); Hemoglobin 11.4 g/dl (14.0-18.0); Imm Gran Abs Auto 0.03 X10*3/uL (0.00-0.03); Imm Gran Pct Auto 0.4 % (0.0-0.4); Lymphocytes Absolute Auto 2.8 X10*3/uL (1.2-4.9); Lymphocytes Percent Auto 34.6 % (20-40); MANUAL DIFF FLAG NO; Mean Corpuscular HGB Conc 34.7 g/dl (31.0-36.0); Mean Corpuscular Hemoglobin 27.9 pg (27.0-33.0); Mean Corpuscular Volume 80.4 fL (80.0-98.0); Mean Platelet Volume 8.2 fL (9.4-12.4); Monocytes Absolute Auto 0.9 X10*3/uL (0.1-1.2); Monocytes Percent Auto 11.1 % (2-11); Neutrophils Absolute Auto 4.2 x10*3/uL (2.0-8.3); Neutrophils Percent Auto 50.9 % (45-73); Platelet Count 403 X10*3/uL (160-400); Red Blood Count 4.09 X10*6/uL (4.60-5.80); Red Cell Distribution Width 14.2 % (11.0-16.0); White Blood Count 8.2 X10*3/uL (4.8-10.8)
--- NOTE | 2022-10-06 04:20 | PC.NURSE ---
Patient is alert and oriented x4. Patient c/o sharp, constant pain in his left flank 10/10 om 0-10 pain scale for 1 week. Patient denies discomfort with urination and reports no visible blood in his urine. Patient reports he has been taking Ibuprofen at home for pain management with minimal improvement in pain. Patient also reports he jammed his left 3 rd and 4 th fingers by a garage door and requesting left hand X-ray to be completed. Dr. Mariscal notified.
[2022-10-06 04:30] LABS: Alanine Aminotransferase 7 U/L (0-40); Albumin Level 4.3 g/dL (3.5-5.0); Alkaline Phosphatase 85 U/L (39-117); Anion Gap 21 (12-20); Aspartate Amino Transferase 12 U/L (5-37); Bilirubin Direct < 0.2 mg/dL (0.0-0.5); Bilirubin Total 0.2 mg/dL (0.0-1.0); Blood Urea Nitrogen 56 mg/dL (9-16); Calcium 9.1 mg/dL (8.4-10.2); Carbon Dioxide 17 mmol/L (22-29); Chloride 100 mmol/L (96-108); Creatinine Clr Calc Pharmacy 29.4; Estimated Glomerular Filt Rate 18; Glucose Random 94 mg/dL (60-115); Lipase 31 U/L (8-78); Potassium 3.7 mmol/L (3.3-5.1); Sodium 134 mmol/L (135-145); Total Protein 7.6 g/dL (6.5-8.0)
[2022-10-06] MEDS: 0.9 % Sodium Chloride 1,000 ML 999 ML IV (04:59)
[2022-10-06] MEDS: Morphine Sulfate 4 MG/ML CARTRIDGE IVPUSH (05:05)
--- NOTE | 2022-10-06 05:12 | PC.NURSE ---
20 G IV line inserted in Left AC, patient medicated for 10/10 left flank pain with morphine 4 mg IV push, 1000 ml NS bolus started and infusing w/o issues.
--- NOTE | 2022-10-06 05:30 | PC.NURSE ---
Patient assisted to the restroom to urinate. Patient ambulated with steady gait, urine specimen obtained via clean catch and sent to the lab. Patient assisted back to bed, call jarrell placed within patient's reach. Patient requested tuna fish sandwich and rafaela glory. Patient provided with tuna fish and rafaela glory. Patient denies nausea/vomiting.
[2022-10-06 05:32] LABS: Appearance Urine Clear; Color Urine Yellow; Glucose Urine UA Negative (Negative); Leukocyte Esterase Urine Negative (Negative); Nitrite Urine Negative (Negative); PH 5.5 (5.0-9.0); UMIC TRIGGER UACC YES; Urine Blood Negative (Negative); Urine Ketones Negative (Negative); Urine Protein 30 (1+) mg/dL (Neg-Trace)
[2022-10-06 05:43] LABS: Bacteria Urine None Seen (None Seen); RBC Urine 0-2 /HPF (0-2); Squamous Epithelial Cell Urine >20 /HPF (0-2); WBC Clumps Urine Present; WBC Urine 0-5 /HPF (0-5)
--- NOTE | 2022-10-06 05:50 | PM.IMHP ---
History of Present Illness Date of Service: 10/06/22 Chief Complaint: Left flank pain this is a 56-year-old male with pertinent history of bipolar disorder, essential hypertension, bbz-ypncfla-abycvqjsu diabetes mellitus, history of left partial nephrectomy (due to cancer) who presents to the emergency department with complaints of left flank pain. Patient states it started a week ago and has been constant and progressive. No aggravating or relieving factors and nonradiating. Patient denies fever, chills, nausea, vomiting, diarrhea. Denies any difficulty with urinary habits. States he has been maintaining adequate p.o. intake. His partial nephrectomy was in December 2021 and states he had follow-up MRI last week done at [facility] and as per the patient everything was okay. Patient denies chest discomfort, palpitations, shortness of breath, changes in bowel habits in the emergency department, patient was found to have elevated creatinine Review of Systems Constitutional: Constitutional: Reports no additional constitutional complaints Cardiovascular: Cardiovascular: Reports no additional cardiovascular complaints Respiratory: Respiratory: Reports no additional respiratory complaints Gastrointestinal: Gastrointestinal: Reports abdominal pain Genitourinary: Genitourinary: Reports no additional male genitourinary complaints [facility] Medical History (Updated 10/06/22 @ 05:54 by Parviz Gregg MD) Bipolar 1 disorder High blood pressure Hyperlipidemia Pertinent family history: family history of pancreatic cancer Surgical History H/O shoulder surgery H/O wrist surgery Hx of foot surgery Hx of hernia repair Social History Alcohol intake: current Alcohol intake frequency: holidays/special occasions only Alcohol type: beer Patient Tobacco Use Status: Never used Tobacco Smoked in Last 30 Days: No Use of substances other than those prescribed or required for medical reasons: No Advance Directives: No Advance Directives Information Provided: Yes Current occupational status: employed 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 Meds Allergies Allergy/AdvReac Type Severity Reaction Status Date / Time GREGG Inhibitors Allergy Severe ANAPHYLAXIS Verified 10/06/22 03:43 [GREGG INHIBITORS] lisinopril Allergy Unknown Anaphylaxis Verified 10/06/22 03:43 gregg inhibitors Allergy Unknown Anaphylaxis Uncoded 01/23/22 10:36 Active Medications: Current Medications Acetaminophen (Acetaminophen 325 Mg Tablet) 650 mg PO Q6H PRN PRN Reason: Pain, Mild (Pain Scale 1-3) Enoxaparin Sodium (Enoxaparin Sodium 30 Mg/0.3 Ml Syringe) 30 mg SUBCUT Q24H [facility] Melatonin (Melatonin 3 Mg Tablet) 6 mg PO BEDTIME PRN PRN Reason: Insomnia Ondansetron HCl (Ondansetron Hcl 4 Mg/2 Ml Vial) 4 mg IVPUSH Q8H PRN PRN Reason: Nausea and Vomiting Pharmacy Consult (Consult Rx Perform Med Rec) 1 each MISCELLANE ONCE PRN PRN Reason: Consult order Sodium Chloride (0.9 % Sodium Chloride Flush 3 Ml Syringe) 3 ml IVFLUSH QSHIFT [facility] Home Medications Medication Instructions Recorded Confirmed Last Taken Type chlorthalidone 25 mg tablet 1 tab PO DAILY 10/06/22 10/06/22 Unknown History famotidine 20 mg tablet 1 tab PO BID 10/06/22 10/06/22 Unknown History hydralazine 10 mg tablet 1 tab PO BID 10/06/22 10/06/22 Unknown History metformin 500 mg tablet 2 tab PO BID 10/06/22 10/06/22 Unknown History quetiapine 100 mg tablet 1 tab PO DAILY 10/06/22 10/06/22 Unknown History quetiapine 200 mg tablet 1 tab PO BEDTIME 10/06/22 10/06/22 Unknown History verapamil 360 mg 24 hr 1 cap PO DAILY 10/06/22 10/06/22 Unknown History capsule,extended release Physical Exam Vital Signs and Narrative: Vital Signs: Last Vital Signs Temp 97.6 F 10/06/22 04:06 Pulse 81 10/06/22 04:06 Resp 14 10/06/22 05:05 BP 139/80 10/06/22 04:06 Pulse Ox 96 10/06/22 04:06 O2 Del Method 10/06/22 04:06 BMI result Body Mass Index 31.8 Middle-aged male lying in bed in no distress Neck supple, no JVD Regular rate and rhythm, S1-S2 heard Regular breath sounds bilaterally, no wheezing or crackles appreciated Abdomen soft nontender, no guarding, no rigidity, no CVA tenderness Patient is awake, alert and oriented to self, place, time and person ; no focal motor deficit Psych: Normal mood No pedal edema Results Labs 10/06/22 04:02 10/06/22 04:02 Labs: Laboratory Results - last 24 hr 10/06/22 10/06/22 10/06/22 04:02 04:02 05:22 MCV 80.4 MCH 27.9 MCHC 34.7 RDW 14.2 Plt Count 403 H D MPV 8.2 L Immature Gran % (Auto) 0.4 Neut % (Auto) 50.9 Lymph % (Auto) 34.6 Clay % (Auto) 11.1 H Eos % (Auto) 2.3 Baso % (Auto) 0.7 Lymph # (Auto) 2.8 [place] # (Auto) 0.9 Eos # (Auto) 0.2 Baso # (Auto) 0.1 Abs Immat Gran (auto) 0.03 Absolute Neuts (auto) 4.2 Absolute Nucleated RBC 0.000 Nucleated RBC % (auto) 0.0 Anion Gap 21 H Estim Creat Clear Calc 29.4 Estimated GFR 18 Random Glucose 94 Calcium 9.1 D Total Bilirubin 0.2 Direct Bilirubin < 0.2 AST 12 ALT 7 Alkaline Phosphatase 85 Total Protein 7.6 Albumin 4.3 Lipase 31 Urine Color Yellow Urine Appearance Clear Urine pH 5.5 Ur Specific [place] 1.020 Urine Protein 30 (1+) H Urine Glucose (UA) Negative Urine Ketones Negative Urine Blood Negative Urine Nitrite Negative Ur Leukocyte Esterase Negative Urine RBC 0-2 Urine WBC 0-5 Urine WBC Clumps Present Ur Squamous Epith Cells >20 Urine Bacteria None Seen Hyaline Casts 3-5 Imaging Radiologist's Impressions: Impressions Abdomen/Pelvis CT 10/06/22 04:39 IMPRESSION: * No urinary calculi or hydronephrosis. * Pancolonic diverticulosis, most concentrated within sigmoid colon. No evidence of diverticulitis. Fleischner guidelines were followed. Hand X-Ray 10/06/22 04:43 FINDINGS/IMPRESSION: Acute comminuted minimally displaced fractures of the third and fourth distal phalangeal franklyn, slightly more pronounced involving the fourth digit. Associated soft tissue swelling is present. No radiopaque foreign bodies. Assessment and Plan (1) Bipolar 1 disorder: Status: Acute (2) Hyperlipidemia: Status: Acute (3) Acute on chronic kidney failure: Status: Acute Plan this is a 56-year-old male with pertinent history of bipolar disorder, essential hypertension, tcn-bdanszn-xmsplabtj diabetes mellitus, history of left partial nephrectomy (due to cancer) who presents to the emergency department with complaints of left flank pain. #. acute kidney injury on chronic kidney disease: Unclear etiology. Imaging without abnormality. Obtaining urine protein and urine creatinine to quantify. Patient received IV crystalloids in the ER. Also consulting Nephrology for assistance . Monitor urine output and creatinine. Avoid nephrotoxins #. left flank plain: Unclear etiology. No CVA tenderness on exam and imaging without any abnormality. #. acute minimally displaced fracture of 3rd and 4th distal phalangeal digit of left hand: Conservative management with pain control #. Essential hypertension: hold chlorthalidone, continue hydralazine #. bipolar disorder: Continue Seroquel #. lgi-sebjmbq-cgjqqwrup diabetes mellitus: Hold metformin, initiate Accu-Cheks with sliding scale insulin DVT prophylaxis: Lovenox 30 mg daily Cardiac diet Full code Admit as inpatient and will require two night minimum hospital stay for monitoring of kidney found Time Spent With Patient Time: Total time managing care of this patient today ____ minutes. Quality Stroke Does the patient have a stroke diagnosis?: No VTE Prior VTE?: No VTE Risk Level:: Medical - moderate - high VTE Device Contraindication: Treatment Not Indicated VTE Drug Contraindication: N/A - Med Ordered
[2022-10-06 06:08] LABS: Influenza A PCR NEGATIVE (Negative); Influenza B PCR NEGATIVE (Negative); Resp Syncy Virus RNA Qual PCR NEGATIVE (Negative); SARS COV2 PCR INHOUSE NEGATIVE (Negative)
[2022-10-06 06:55] LABS: Glucose, Whole Blood 112 mg/dL (60-115)
--- NOTE | 2022-10-06 07:42 | PHA.MEDREC ---
Pharmacy Consult ? Medication Reconciliation Pharmacy has completed the medication reconciliation. Reviewed med rec done by nursing
[2022-10-06] MEDS: Famotidine 20 MG TABLET PO ×2 (08:13→20:43)
[2022-10-06] MEDS: QUEtiapine Fumarate 100 MG TABLET PO ×2 (08:13→20:43)
[2022-10-06] MEDS: hydrALAZINE HCl 10 MG TABLET PO ×2 (08:13→20:44)
[2022-10-06] MEDS: Enoxaparin Sodium 30 MG/0.3 ML SYRINGE SUBCUT (08:13)
--- NOTE | 2022-10-06 09:35 | MHC.CM.PN ---
CM spoke with Patient over the phone at [phone] and addressed IMM with him (original to be given to Patient and a copy to be placed on the chart). 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 Patient has received Pfizer/Covid vax x5 and his PCP is Dr. Jeet Florez.
[2022-10-06] MEDS: VerapamiL HCL SR 180 MG TABLET.ER 360 MG PO (09:50)
--- NOTE | 2022-10-06 11:56 | PC.NURSE ---
THIS RN ASSUMED CARE OF THIS PT AT 1130. PT IN ROOM RESTING QUIETLY, NO APPARENT DISTRESS. PT REQUESTED PAIN MED, PROVIDER AWARE, PRN ORDER PENDING. PT AWARE
[2022-10-06] MEDS: Morphine Sulfate 2 MG/ML CARTRIDGE IVPUSH ×2 (13:01→18:00)
[2022-10-06 13:49] LABS: Glucose, Whole Blood 109 mg/dL (60-115)
[2022-10-06 15:07] LABS: Creatinine Urine 114.63 mg/dL; Total Protein Urine Random 37 mg/dL (<12)
--- NOTE | 2022-10-06 15:29 | PM.EVENT ---
Event Note Date of Service: 10/06/22 Event Note: Pt with history bipolar disorder, htn, non-insulin dependent type 2 diabetes, history partial left nephrectomy (due to cancer) admitted for LISANDRA of unclear etiology. Was reporting 5/10 left flank pain without radiation, now 07/07. Nephrology consult pending. CT abd/pelvis unremarkable. Urine studies significant for protein, intrinsic LISANDRA. Recheck BMP now. Pain scale added for management left flank pain unclear cause (no pyelo, obstructive uropathy, etc). Appreciate nephro input Time Spent With Patient Time: Total time managing care of this patient today ____ minutes.
[2022-10-06 16:24] LABS: Anion Gap 14 (12-20); Blood Urea Nitrogen 51 mg/dL (9-16); Calcium 8.7 mg/dL (8.4-10.2); Carbon Dioxide 23 mmol/L (22-29); Chloride 104 mmol/L (96-108); Creatinine Clr Calc Pharmacy 39.1; Estimated Glomerular Filt Rate 25; Glucose Random 115 mg/dL (60-115); Potassium 4.2 mmol/L (3.3-5.1); Sodium 137 mmol/L (135-145)
--- NOTE | 2022-10-06 17:12 | MHC.EDTECH ---
Addendum entered by Jose Sawyer 10/06/22 17:13: PATIENT REFUSED TO HAVE HIS SUGAR CHECK ,SAROJ VALDES IS AWARTE . Original Note: PT REFUSED TO HAVE HIS SUGAR ,SAROJ Vizcaino;SHEILA FALL .
--- NOTE | 2022-10-06 17:18 | PC.NURSE ---
PT REFUSED POC CHECK. STATED I GOT IT CHECK AN HR AGO . PT WAITING TO BE TRANSPORTED TO 378. PT AWARE OF PLAN.
[2022-10-06] MEDS: Lactated Ringers 1,000 ML 100 ML IVCONT (17:29)
[2022-10-06 20:02] LABS: Glucose, Whole Blood 153 mg/dL (60-115)
[2022-10-06] MEDS: Acetaminophen 325 MG TABLET 650 MG PO (20:43)
[2022-10-06] MEDS: QUEtiapine Fumarate 200 MG TABLET PO (20:43)
[2022-10-06] MEDS: oxyCODONE HCl Immed Release 5 MG TABLET PO (20:43)
--- NOTE | 2022-10-06 21:09 | PM.CNNEP ---
History of Present Illness Reason for Consult Consult date: 10/06/22 Chief Complaint Chief complaint: Abdominal pain History of Present Illness Narrative: 56-year-old male with essential hypertension,? vri-tyffhrp-jplscrynt diabetes mellitus, history of left partial nephrectomy (due to cancer) who presented to the emergency department with complaints of left flank pain.? Patient states it started a week ago and has been constant and progressive.? No aggravating or relieving factors and nonradiating.? Patient denies fever, chills, nausea, vomiting, diarrhea.? Denies any difficulty with urinary habits.? States he has been maintaining adequate p.o. intake.? His partial nephrectomy was in December 2021 and states he had follow-up MRI last week done at [facility] and as per the patient everything was okay.? Patient denies chest discomfort, palpitations, shortness of breath, changes in bowel habits. His serum creatinine has been 3.58. Nephrology has been consulted to assist in his clinical care during his current hospital stay Review of Systems Review of Systems Yes all other systems are reviewed and are negative PMFSH Past Medical History Medical History Bipolar 1 disorder High blood pressure Hyperlipidemia Family History Family history: reviewed and not pertinent Surgical History Surgical History H/O shoulder surgery H/O wrist surgery Hx of foot surgery Hx of hernia repair Social History Social History Household Members: Family Housing: House Do you presently have visiting nurse or other home services: No Alcohol intake: current Alcohol intake frequency: holidays/special occasions only Alcohol type: beer Patient Tobacco Use Status: Never used Tobacco service: Yes Current occupational status: employed 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 Dextrose (Dextrose 50 % 25 Gm/50 Ml Syringe) 25 gm IVPUSH Q15M PRN; Protocol PRN Reason: per Hypoglycemia Standing Ord. Enoxaparin Sodium (Enoxaparin Sodium 30 Mg/0.3 Ml Syringe) 30 mg SUBCUT Q24H [facility] Last Admin: 10/06/22 08:13 Dose: 30 mg Famotidine (Famotidine 20 Mg Tablet) 20 mg PO BID [facility] Last Admin: 10/06/22 20:43 Dose: 20 mg Glucose (Glucose Gel 15 Gm Gel..Gram.) 15 gm PO Q15M PRN; Protocol PRN Reason: per Hypoglycemia Standing Ord. Hydralazine HCl (Hydralazine Hcl 10 Mg Tablet) 10 mg PO BID [facility]; Protocol Last Admin: 10/06/22 20:44 Dose: 10 mg Lactated Ringer's (Lr) 1,000 mls @ 100 mls/hr IVCONT .Q10H [facility] Last Admin: 10/06/22 17:29 Dose: 100 mls/hr Insulin Human Lispro (Insulin Lispro 100 Unit/Ml 3 Ml Vial) 0.1 - 10 unit SUBCUT QIDACHS [facility]; Protocol Last Admin: 10/06/22 20:49 Dose: Not Given Melatonin (Melatonin 3 Mg Tablet) 6 mg PO BEDTIME PRN PRN Reason: Insomnia Morphine Sulfate (Morphine Sulfate 2 Mg/Ml Cartridge) 2 mg IVPUSH Q4H PRN; Protocol PRN Reason: Pain, Moderate (Pain Scale 4-6 Last Admin: 10/06/22 18:00 Dose: 2 mg Ondansetron HCl (Ondansetron Hcl 4 Mg/2 Ml Vial) 4 mg IVPUSH Q8H PRN PRN Reason: Nausea and Vomiting Oxycodone HCl (Oxycodone Hcl Immed Release 5 Mg Tablet) 5 mg PO Q4H PRN PRN Reason: Pain, Moderate (Pain Scale 4-6 Last Admin: 10/06/22 20:43 Dose: 5 mg Pharmacy Consult (Consult Rx Perform Med Rec) 1 each MISCELLANE ONCE PRN PRN Reason: Consult order Quetiapine Fumarate (Quetiapine Fumarate 200 Mg Tablet) 200 mg PO BEDTIME [facility] Last Admin: 10/06/22 20:43 Dose: 200 mg Quetiapine Fumarate (Quetiapine Fumarate 100 Mg Tablet) 100 mg PO BID [facility] Last Admin: 10/06/22 20:43 Dose: 100 mg Sodium Chloride (0.9 % Sodium Chloride Flush 3 Ml Syringe) 3 ml IVFLUSH QSHIFT [facility] Last Admin: 10/06/22 17:21 Dose: Not Given Verapamil HCl (Verapamil Hcl Sr 180 Mg Tablet.Er) 360 mg PO DAILY [facility]; Protocol Last Admin: 10/06/22 09:50 Dose: 360 mg Home Medications Medication Instructions Recorded Confirmed Last Taken Type chlorthalidone 25 mg tablet 1 tab PO DAILY 10/06/22 10/06/22 Unknown History famotidine 20 mg tablet 1 tab PO BID 10/06/22 10/06/22 Unknown History hydralazine 10 mg tablet 1 tab PO BID 10/06/22 10/06/22 Unknown History metformin 500 mg tablet 2 tab PO BID 10/06/22 10/06/22 Unknown History quetiapine 100 mg tablet 1 tab PO BID 10/06/22 10/06/22 Unknown History quetiapine 200 mg tablet 1 tab PO BEDTIME 10/06/22 10/06/22 Unknown History verapamil 360 mg 24 hr 1 cap PO BEDTIME 10/06/22 10/06/22 Unknown History capsule,extended release Physical Exam Vital Signs: Last Vital Signs Temp 97.8 F 10/06/22 19:10 Pulse 71 10/06/22 19:10 Resp 18 10/06/22 19:10 BP 146/74 H 10/06/22 19:10 Pulse Ox 98 10/06/22 19:10 O2 Del Method 10/06/22 19:10 BMI result Body Mass Index 31.8 Const General: no acute distress HEENT Head: Yes normocephalic Mouth: moist mucous membranes Eyes EOM: EOMs intact bilaterally Neck Neck: Yes supple Resp Auscultation: diminished lung sounds Cardio Rate: regular rate GI Palpation (GI): Soft to palpation Neuro General: moves all extremities Results Lab Results 10/06/22 04:02 10/06/22 15:52 Lab results: Chemistry 10/06/22 10/06/22 04:02 15:52 Sodium 134 L 137 Potassium 3.7 4.2 Carbon Dioxide 17 L 23 BUN 56 H D 51 H Creatinine 3.58 H 2.69 H Calcium 9.1 D 8.7 Hematology 10/06/22 04:02 WBC 8.2 Hgb 11.4 L Plt Count 403 H D Urinalysis 10/06/22 05:22 Urine Color Yellow Urine Appearance Clear Urine pH 5.5 Ur Specific [place] 1.020 Urine Protein 30 (1+) H Urine Glucose (UA) Negative Urine Ketones Negative Urine Blood Negative Urine Nitrite Negative Ur Leukocyte Esterase Negative Urine RBC 0-2 Urine WBC 0-5 Ur Squamous Epith Cells >20 Hyaline Casts 3-5 Urine Studies 10/06/22 05:22 Urine Creatinine 114.63 Assessment and Plan (1) Acute on chronic kidney failure: Status: Acute Plan Has mild CKD at baseline LISANDRA due to tubular injury No obstruction by imaging Urine studies reviewed No ACEI/ARB/Diuretics/NSAID's IV fluids/supportive care No indication for renal replacement Labs AM. Shall closely F/U Time Spent With Patient Time: Total time managing care of this patient today ____ minutes. Procedures Date of Service Date of Service: 10/06/22
[2022-10-07] VITALS (7 sets, daily range): BP systolic 101–141; BP diastolic 59–90; PULSE 66–87; RESP 17–19; TEMP 36.5–37.1; O2SAT 93–98
[2022-10-07] MEDS: Morphine Sulfate 2 MG/ML CARTRIDGE IVPUSH ×5 (02:00→22:05)
[2022-10-07] MEDS: Lactated Ringers 1,000 ML 100 ML IVCONT ×3 (02:03→21:37)
[2022-10-07] MEDS: oxyCODONE HCl Immed Release 5 MG TABLET PO ×4 (05:00→20:16)
[2022-10-07 05:57] LABS: Basophils Absolute Auto 0.1 X10*3/uL (0.0-0.2); Basophils Percent Auto 0.9 % (0-2); Eosinophils Absolute Auto 0.2 X10*3/uL (0.0-0.4); Eosinophils Percent Auto 2.3 % (0-4); Hemoglobin 10.2 g/dl (14.0-18.0); Imm Gran Abs Auto 0.03 X10*3/uL (0.00-0.03); Imm Gran Pct Auto 0.5 % (0.0-0.4); Lymphocytes Absolute Auto 2.6 X10*3/uL (1.2-4.9); Lymphocytes Percent Auto 38.9 % (20-40); MANUAL DIFF FLAG NO; Mean Corpuscular HGB Conc 35.2 g/dl (31.0-36.0); Mean Corpuscular Hemoglobin 28.6 pg (27.0-33.0); Mean Corpuscular Volume 81.2 fL (80.0-98.0); Mean Platelet Volume 8.5 fL (9.4-12.4); Monocytes Absolute Auto 0.6 X10*3/uL (0.1-1.2); Monocytes Percent Auto 8.4 % (2-11); Neutrophils Absolute Auto 3.3 x10*3/uL (2.0-8.3); Platelet Count 402 X10*3/uL (160-400); Red Blood Count 3.57 X10*6/uL (4.60-5.80); Red Cell Distribution Width 14.3 % (11.0-16.0); White Blood Count 6.7 X10*3/uL (4.8-10.8)
[2022-10-07 06:19] LABS: Anion Gap 14 (12-20); Blood Urea Nitrogen 40 mg/dL (9-16); Calcium 8.8 mg/dL (8.4-10.2); Carbon Dioxide 25 mmol/L (22-29); Chloride 105 mmol/L (96-108); Creatinine Clr Calc Pharmacy 49.9; Estimated Glomerular Filt Rate 33; Glucose Random 86 mg/dL (60-115); Potassium 4.5 mmol/L (3.3-5.1); Sodium 139 mmol/L (135-145)
[2022-10-07 06:21] LABS: Anion Gap 12 (12-20); Blood Urea Nitrogen 39 mg/dL (9-16); Calcium 8.7 mg/dL (8.4-10.2); Carbon Dioxide 24 mmol/L (22-29); Chloride 105 mmol/L (96-108); Creatinine Clr Calc Pharmacy 51.3; Estimated Glomerular Filt Rate 34; Glucose Random 86 mg/dL (60-115); Potassium 4.2 mmol/L (3.3-5.1); Sodium 137 mmol/L (135-145)
[2022-10-07 07:29] LABS: Glucose, Whole Blood 116 mg/dL (60-115)
[2022-10-07] MEDS: hydrALAZINE HCl 10 MG TABLET PO ×2 (08:20→20:09)
[2022-10-07] MEDS: VerapamiL HCL SR 180 MG TABLET.ER 360 MG PO (08:21)
[2022-10-07] MEDS: Famotidine 20 MG TABLET PO ×2 (08:21→20:10)
[2022-10-07] MEDS: QUEtiapine Fumarate 100 MG TABLET PO ×2 (08:21→20:10)
[2022-10-07] MEDS: Enoxaparin Sodium 30 MG/0.3 ML SYRINGE SUBCUT (08:27)
--- NOTE | 2022-10-07 10:18 | P.PNNP_ITS ---
Subjective Subjective Date of Service: 10/07/22 Interval history: Events noted. All recent data reviewed Physical Exam Vital Signs: Vital Signs: Last Vital Signs Temp 98.1 F 10/07/22 07:40 Pulse 71 10/07/22 07:40 Resp 19 10/07/22 08:21 BP 125/69 10/07/22 07:40 Pulse Ox 95 10/07/22 07:40 O2 Del Method 10/07/22 07:40 BMI result Body Mass Index 31.8 Const: General: no acute distress Eyes: EOM: EOMs intact bilaterally Neck: Neck: Yes supple Resp: Auscultation: diminished lung sounds Cardio: Rate: regular rate GI: Palpation (GI): Soft to palpation Skin: Rashes: no rashes Neuro: General: moves all extremities Objective Data Labs 10/07/22 05:12 10/07/22 05:12 Labs: Laboratory Results - last 24 hr 10/06/22 10/06/22 10/06/22 05:22 05:22 13:33 WBC RBC Hgb Hct MCV MCH MCHC RDW Plt Count MPV Immature Gran % (Auto) Neut % (Auto) Lymph % (Auto) [place] % (Auto) Eos % (Auto) Baso % (Auto) Lymph # (Auto) [place] # (Auto) Eos # (Auto) Baso # (Auto) Abs Immat Gran (auto) Absolute Neuts (auto) Absolute Nucleated RBC Nucleated RBC % (auto) Sodium Potassium Chloride Carbon Dioxide Anion Gap BUN Creatinine Estim Creat Clear Calc Estimated GFR POC Glucose 109 Random Glucose Calcium U Random Total Protein 37 H Ur Random Sodium 107.0 Urine Creatinine 114.63 10/06/22 10/06/22 10/07/22 15:52 19:59 05:12 WBC 6.7 RBC 3.57 L Hgb 10.2 L Hct 29.0 L MCV 81.2 MCH 28.6 MCHC 35.2 RDW 14.3 Plt Count 402 H MPV 8.5 L Immature Gran % (Auto) 0.5 H Neut % (Auto) 49.0 Lymph % (Auto) 38.9 [place] % (Auto) 8.4 Eos % (Auto) 2.3 Baso % (Auto) 0.9 Lymph # (Auto) 2.6 [place] # (Auto) 0.6 Eos # (Auto) 0.2 Baso # (Auto) 0.1 Abs Immat Gran (auto) 0.03 Absolute Neuts (auto) 3.3 Absolute Nucleated RBC 0.000 Nucleated RBC % (auto) 0.0 Sodium 137 Potassium 4.2 Chloride 104 Carbon Dioxide 23 Anion Gap 14 BUN 51 H Creatinine 2.69 H Estim Creat Clear Calc 39.1 Estimated GFR 25 POC Glucose 153 H Random Glucose 115 Calcium 8.7 U Random Total Protein Ur Random Sodium Urine Creatinine 10/07/22 10/07/22 10/07/22 05:12 05:12 07:21 WBC RBC Hgb Hct MCV MCH MCHC RDW Plt Count MPV Immature Gran % (Auto) Neut % (Auto) Lymph % (Auto) [place] % (Auto) Eos % (Auto) Baso % (Auto) Lymph # (Auto) [place] # (Auto) Eos # (Auto) Baso # (Auto) Abs Immat Gran (auto) Absolute Neuts (auto) Absolute Nucleated RBC Nucleated RBC % (auto) Sodium 137 139 Potassium 4.2 4.5 Chloride 105 105 Carbon Dioxide 24 25 Anion Gap 12 14 BUN 39 H 40 H Creatinine 2.05 H 2.11 H Estim Creat Clear Calc 51.3 49.9 Estimated GFR 34 33 POC Glucose 116 H Random Glucose 86 86 Calcium 8.7 8.8 U Random Total Protein Ur Random Sodium Urine Creatinine Procedures Date of Service Date of Service: 10/07/22 Assessment & Plan Assessment and plan (1) Acute on chronic kidney failure: Status: Acute Assessment and Plan: Has mild CKD at baseline LISANDRA due to tubular injury Renal functions better No obstruction by imaging Urine studies reviewed No ACEI/ARB/Diuretics/NSAID's IV fluids/supportive care No indication for renal replacement Labs AM. Shall closely F/U Time Spent With Patient Time: Total time managing care of this patient today ____ minutes. Progress Note: Quality Stroke Does the patient have a stroke diagnosis?: No
--- NOTE | 2022-10-07 11:34 | MHC.CM.PN ---
Per MD rounds discharge today. Patient requested to speak with MD. Louis sent to MD. Patient will self transport at discharge.
[2022-10-07] MEDS: Acetaminophen 325 MG TABLET 650 MG PO (11:55)
--- NOTE | 2022-10-07 11:57 | HO.PM.IMPN ---
Subjective Subjective Date of Service: 10/07/22 Interval History: cc: flank pain interval history: still present Physical Exam Vital Signs: Vital Signs: Last Vital Signs Temp 98.1 F 10/07/22 07:40 Pulse 71 10/07/22 07:40 Resp 19 10/07/22 08:21 BP 125/69 10/07/22 07:40 Pulse Ox 95 10/07/22 07:40 O2 Del Method 10/07/22 07:40 BMI result Body Mass Index 31.8 General: AO X 3, no acute distress Resp: CTA bilateral, no accessory muscles used CVS: S1,S2,RRR GI: soft, non tender, non distended Neuro: motor grossly intact, alert Psych: appropriate affect, appropriate insight Objective Data Active Medications Acetaminophen (Acetaminophen 325 Mg Tablet) 650 mg PO Q6H PRN PRN Reason: Pain, Mild (Pain Scale 1-3) Last Admin: 10/07/22 11:55 Dose: 650 mg Documented By: COTEMA Dextrose (Dextrose 50 % 25 Gm/50 Ml Syringe) 25 gm IVPUSH Q15M PRN; Protocol PRN Reason: per Hypoglycemia Standing Ord. Dextrose (Dextrose 50 % 25 Gm/50 Ml Syringe) 25 gm IVPUSH Q15M PRN; Protocol PRN Reason: per Hypoglycemia Standing Ord. Enoxaparin Sodium (Enoxaparin Sodium 30 Mg/0.3 Ml Syringe) 30 mg SUBCUT Q24H [facility] Last Admin: 10/07/22 08:27 Dose: 30 mg Documented By: COTEMA Famotidine (Famotidine 20 Mg Tablet) 20 mg PO BID [facility] Last Admin: 10/07/22 08:21 Dose: 20 mg Documented By: RICHELLEEMA Glucose (Glucose Gel 15 Gm Gel..Gram.) 15 gm PO Q15M PRN; Protocol PRN Reason: per Hypoglycemia Standing Ord. Hydralazine HCl (Hydralazine Hcl 10 Mg Tablet) 10 mg PO BID [facility]; Protocol Last Admin: 10/07/22 08:20 Dose: 10 mg Documented By: RICHELLEEMA Lactated Ringer's (Lr) 1,000 mls @ 100 mls/hr IVCONT .Q10H [facility] Last Admin: 10/07/22 11:55 Dose: 100 mls/hr Documented By: RICHELLEEMA Insulin Human Lispro (Insulin Lispro 100 Unit/Ml 3 Ml Vial) 0.1 - 10 unit SUBCUT QIDACHS [facility]; Protocol Last Admin: 10/07/22 11:53 Dose: Not Given Documented By: WILL Non-Admin Reason: pt refused Melatonin (Melatonin 3 Mg Tablet) 6 mg PO BEDTIME PRN PRN Reason: Insomnia Morphine Sulfate (Morphine Sulfate 2 Mg/Ml Cartridge) 2 mg IVPUSH Q4H PRN; Protocol PRN Reason: Pain, Moderate (Pain Scale 4-6 Last Admin: 10/07/22 08:21 Dose: 2 mg Documented By: WILL Ondansetron HCl (Ondansetron Hcl 4 Mg/2 Ml Vial) 4 mg IVPUSH Q8H PRN PRN Reason: Nausea and Vomiting Oxycodone HCl (Oxycodone Hcl Immed Release 5 Mg Tablet) 5 mg PO Q4H PRN PRN Reason: Pain, Moderate (Pain Scale 4-6 Last Admin: 10/07/22 11:54 Dose: 5 mg Documented By: WILL Pharmacy Consult (Consult Rx Perform Med Rec) 1 each MISCELLANE ONCE PRN PRN Reason: Consult order Quetiapine Fumarate (Quetiapine Fumarate 200 Mg Tablet) 200 mg PO BEDTIME [facility] Last Admin: 10/06/22 20:43 Dose: 200 mg Documented By: REMY Quetiapine Fumarate (Quetiapine Fumarate 100 Mg Tablet) 100 mg PO BID [facility] Last Admin: 10/07/22 08:21 Dose: 100 mg Documented By: WILL Sodium Chloride (0.9 % Sodium Chloride Flush 3 Ml Syringe) [facility] Last Admin: 10/07/22 07:34 Dose: Not Given Documented By: WILL Non-Admin Reason: IV Running Verapamil HCl (Verapamil Hcl Sr 180 Mg Tablet.Er) 360 mg PO DAILY [facility]; Protocol Last Admin: 10/07/22 08:21 Dose: 360 mg Documented By: WILL Labs 10/07/22 05:12 10/07/22 05:12 Labs: Laboratory Results - last 24 hr 10/06/22 10/06/22 10/06/22 05:22 05:22 13:33 MCV MCH MCHC RDW Plt Count MPV Immature Gran % (Auto) Neut % (Auto) Lymph % (Auto) [place] % (Auto) Eos % (Auto) Baso % (Auto) Lymph # (Auto) [place] # (Auto) Eos # (Auto) Baso # (Auto) Abs Immat Gran (auto) Absolute Neuts (auto) Absolute Nucleated RBC Nucleated RBC % (auto) Anion Gap Estim Creat Clear Calc Estimated GFR POC Glucose 109 Random Glucose Calcium U Random Total Protein 37 H Ur Random Sodium 107.0 Urine Creatinine 114.63 10/06/22 10/06/22 10/07/22 15:52 19:59 05:12 MCV 81.2 MCH 28.6 MCHC 35.2 RDW 14.3 Plt Count 402 H MPV 8.5 L Immature Gran % (Auto) 0.5 H Neut % (Auto) 49.0 Lymph % (Auto) 38.9 [place] % (Auto) 8.4 Eos % (Auto) 2.3 Baso % (Auto) 0.9 Lymph # (Auto) 2.6 [place] # (Auto) 0.6 Eos # (Auto) 0.2 Baso # (Auto) 0.1 Abs Immat Gran (auto) 0.03 Absolute Neuts (auto) 3.3 Absolute Nucleated RBC 0.000 Nucleated RBC % (auto) 0.0 Anion Gap 14 Estim Creat Clear Calc 39.1 Estimated GFR 25 POC Glucose 153 H Random Glucose 115 Calcium 8.7 U Random Total Protein Ur Random Sodium Urine Creatinine 10/07/22 10/07/22 10/07/22 05:12 05:12 07:21 MCV MCH MCHC RDW Plt Count MPV Immature Gran % (Auto) Neut % (Auto) Lymph % (Auto) [place] % (Auto) Eos % (Auto) Baso % (Auto) Lymph # (Auto) [place] # (Auto) Eos # (Auto) Baso # (Auto) Abs Immat Gran (auto) Absolute Neuts (auto) Absolute Nucleated RBC Nucleated RBC % (auto) Anion Gap 12 14 Estim Creat Clear Calc 51.3 49.9 Estimated GFR 34 33 POC Glucose 116 H Random Glucose 86 86 Calcium 8.7 8.8 U Random Total Protein Ur Random Sodium Urine Creatinine Assessment and Plan (1) Acute on chronic kidney failure: Status: Acute Plan 56-year-old male with pertinent history of bipolar disorder, essential hypertension,? ynn-abiunaq-xvtkvmzuv diabetes mellitus, history of left partial nephrectomy (due to RCC) who presented to the emergency department with complaints of left flank pain, found to have LISANDRA acute kidney injury on chronic kidney disease III due to NSAIDs improving continue to monitor nephro following left flank pain unclear etiology CT abd unremarkable, ua negative for rbcs, ?MSK oxycodone prn acute minimally displaced fracture of 3rd and 4th distal phalangeal digit of left hand (got caught in garage) ?Conservative management with pain control Essential hypertension hold chlorthalidone for lisandra, continue hydralazine bipolar disorder Continue Seroquel dmo-lhgchqq-ngblkvjkx diabetes mellitus Hold metformin continue insulin ?DVT prophylaxis:? Lovenox 30 mg daily Full code reason for continued hospitalization: monitor lisandra Time Spent With Patient Time: Total time managing care of this patient today ____ minutes. Quality Stroke Does the patient have a stroke diagnosis?: No VTE Prior VTE?: No VTE Risk Level:: Medical - moderate - high VTE Device Contraindication: Treatment Not Indicated VTE Drug Contraindication: N/A - Med Ordered
[2022-10-07 12:31] LABS: Iron 47 mcg/dL (45-160); Percent Iron Saturation 24 % (15-50); Total Iron Binding Capacity 193 mcg/dL (228-428); Unsaturated Iron Binding 146 ug/dL
[2022-10-07 12:46] LABS: Ferritin 283 ng/mL (20-250)
[2022-10-07 15:18] LABS: Glucose, Whole Blood 120 mg/dL (60-115)
[2022-10-07 19:11] LABS: Influenza A PCR NEGATIVE (Negative); Influenza B PCR NEGATIVE (Negative); Resp Syncy Virus RNA Qual PCR NEGATIVE (Negative); SARS COV2 PCR INHOUSE NEGATIVE (Negative)
[2022-10-07 19:37] LABS: Glucose, Whole Blood 123 mg/dL (60-115)
[2022-10-07] MEDS: QUEtiapine Fumarate 200 MG TABLET PO (20:10)
[2022-10-08] MEDS: oxyCODONE HCl Immed Release 5 MG TABLET PO ×3 (01:30→10:50)
[2022-10-08] MEDS: Acetaminophen 325 MG TABLET 650 MG PO ×2 (01:30→08:00)
[2022-10-08] MEDS: Morphine Sulfate 2 MG/ML CARTRIDGE IVPUSH ×2 (02:42→06:41)
[2022-10-08 03:21] VITALS: BP 124/75; PULSE 66; RESP 16; TEMP 36.7; O2SAT 94
[2022-10-08 06:15] LABS: Hematocrit 29.8 % (42.0-52.0); Hemoglobin 10.3 g/dl (14.0-18.0); Mean Corpuscular HGB Conc 34.6 g/dl (31.0-36.0); Mean Corpuscular Hemoglobin 28.4 pg (27.0-33.0); Mean Corpuscular Volume 82.1 fL (80.0-98.0); Mean Platelet Volume 8.5 fL (9.4-12.4); Platelet Count 439 X10*3/uL (160-400); Red Blood Count 3.63 X10*6/uL (4.60-5.80); Red Cell Distribution Width 14.5 % (11.0-16.0); White Blood Count 7.4 X10*3/uL (4.8-10.8)
[2022-10-08] MEDS: Lactated Ringers 1,000 ML 100 ML IVCONT (06:34)
[2022-10-08 06:55] LABS: Anion Gap 14 (12-20); Blood Urea Nitrogen 29 mg/dL (9-16); Calcium 9.1 mg/dL (8.4-10.2); Carbon Dioxide 26 mmol/L (22-29); Chloride 103 mmol/L (96-108); Creatinine Clr Calc Pharmacy 73.1; Estimated Glomerular Filt Rate 51; Glucose Fasting 87 mg/dL (60-99); Potassium 4.8 mmol/L (3.3-5.1); Sodium 138 mmol/L (135-145)
[2022-10-08 07:56] LABS: Glucose, Whole Blood 98 mg/dL (60-115)
[2022-10-08 08:00] VITALS: BP 148/83; PULSE 73; RESP 18; TEMP 36.3; O2SAT 94
[2022-10-08] MEDS: QUEtiapine Fumarate 100 MG TABLET PO (08:01)
[2022-10-08] MEDS: hydrALAZINE HCl 10 MG TABLET PO (08:01)
[2022-10-08] MEDS: Enoxaparin Sodium 30 MG/0.3 ML SYRINGE SUBCUT (08:01)
[2022-10-08] MEDS: Famotidine 20 MG TABLET PO (08:01)
[2022-10-08] MEDS: VerapamiL HCL SR 180 MG TABLET.ER 360 MG PO (08:01)
[2022-10-08 11:50] LABS: Glucose, Whole Blood 117 mg/dL (60-115)
--- NOTE | 2022-10-08 12:59 | PM.PNNEP ---
Subjective Subjective Date of Service: 10/08/22 Interval history: Still has flank pain. Renal function better Physical Exam Vital Signs: Vital Signs: Last Vital Signs Temp 97.4 F 10/08/22 08:00 Pulse 73 10/08/22 08:00 Resp 18 10/08/22 08:00 BP 148/83 H 10/08/22 08:00 Pulse Ox 94 10/08/22 08:00 O2 Del Method 10/08/22 08:00 BMI result Body Mass Index 31.8 Const: General: no acute distress Orientation/consciousness: patient oriented x3 Eyes: EOM: EOMs intact bilaterally Neck: Neck: Yes supple Resp: Auscultation: diminished lung sounds Cardio: Rate: regular rate GI: Palpation (GI): Soft to palpation Neuro: General: patient oriented x3 and moves all extremities Objective Data Labs 10/08/22 05:29 10/08/22 05:29 Labs: Laboratory Results - last 24 hr 10/07/22 10/07/22 10/07/22 15:01 18:04 19:32 WBC RBC Hgb Hct MCV MCH MCHC RDW Plt Count MPV Absolute Nucleated RBC Nucleated RBC % (auto) Sodium Potassium Chloride Carbon Dioxide Anion Gap BUN Creatinine Estim Creat Clear Calc Estimated GFR POC Glucose 120 H 123 H Fasting Glucose Calcium Influenza Type A (PCR) NEGATIVE Influenza Type B (PCR) NEGATIVE RSV RNA Qual (PCR) NEGATIVE SARS-CoV-2 RNA (RT-PCR) NEGATIVE 10/08/22 10/08/22 10/08/22 05:29 05:29 07:31 WBC 7.4 RBC 3.63 L Hgb 10.3 L Hct 29.8 L MCV 82.1 MCH 28.4 MCHC 34.6 RDW 14.5 Plt Count 439 H MPV 8.5 L Absolute Nucleated RBC 0.000 Nucleated RBC % (auto) 0.0 Sodium 138 Potassium 4.8 Chloride 103 Carbon Dioxide 26 Anion Gap 14 BUN 29 H Creatinine 1.44 H Estim Creat Clear Calc 73.1 Estimated GFR 51 POC Glucose 98 Fasting Glucose 87 Calcium 9.1 Influenza Type A (PCR) Influenza Type B (PCR) RSV RNA Qual (PCR) SARS-CoV-2 RNA (RT-PCR) 10/08/22 11:39 WBC RBC Hgb Hct MCV MCH MCHC RDW Plt Count MPV Absolute Nucleated RBC Nucleated RBC % (auto) Sodium Potassium Chloride Carbon Dioxide Anion Gap BUN Creatinine Estim Creat Clear Calc Estimated GFR POC Glucose 117 H Fasting Glucose Calcium Influenza Type A (PCR) Influenza Type B (PCR) RSV RNA Qual (PCR) SARS-CoV-2 RNA (RT-PCR) Procedures Date of Service Date of Service: 10/08/22 Assessment & Plan Assessment and plan (1) Acute on chronic kidney failure: Status: Acute Assessment and Plan: Has mild CKD at baseline LISANDRA due to tubular injury Renal functions better No obstruction by imaging Urine studies reviewed No ACEI/ARB/Diuretics/NSAID's Given IV fluids/supportive care Shall arrange close F/U when D/Moris Time Spent With Patient Time: Total time managing care of this patient today ____ minutes. Progress Note: Quality Stroke Does the patient have a stroke diagnosis?: No
--- NOTE | 2022-10-08 13:08 | MHC.CM.PN ---
HOME - SELF CARE. RN AWARE OF PLAN.
--- NOTE | 2022-10-08 13:08 | PM.DS ---
DS: Providers Provider Date of Service: 10/08/22 Date of admission: 10/06/22 05:14 Primary care physician: STEPHEN Jackson Consults: 10/06/22 05:56 Consult to Nephrology Routine Consulting Provider: Jac Wright Reason for consultation: LISANDRA DS: Diagnosis Discharge Diagnosis (1) Acute on chronic kidney failure: Status: Acute DS: Summary Hospital Course Hospital Course: Admission note HPI ?this is a 56-year-old male with pertinent history of bipolar disorder, essential hypertension,? [id number] diabetes mellitus, history of left partial nephrectomy (due to cancer) who presents to the emergency department with complaints of left flank pain.? Patient states it started a week ago and has been constant and progressive.? No aggravating or relieving factors and nonradiating.? Patient denies fever, chills, nausea, vomiting, diarrhea.? Denies any difficulty with urinary habits.? States he has been maintaining adequate p.o. intake.? His partial nephrectomy was in December 2021 and states he had follow-up MRI last week done at [facility] and as per the patient everything was okay.? Patient denies chest discomfort, palpitations, shortness of breath, changes in bowel habits ?in the emergency department, patient was found to have elevated creatinine Hospital course The patient was admitted to the hospital for evaluation of left flank pain. Found to be in acute on chronic CKD stage 3 likely due to non steroid tilts. Nephrotoxic medications were held and the patient was evaluated by nephrology team as he was started on IV fluids. Creatinine improved as chlorthalidone was kept on hold. Nephrology recommended to discharge the patient while holding it. Evaluated for left flank pain as CT scan of the abdomen was negative. Urinalysis was negative as well. MRI was done 1 week ago at [facility] was reviewed and was negative for any acute findings. Pain believed to be likely from muscular source. To be controlled with Tylenol, lidocaine patches and oxycodone as needed. Continue to hold Chlorathalidone until you follow up with Nephrology in office Tylenol, Lidocaine patches & Oxycodone as needed for pain Follow blood work as outpatient Time Spent with Patient Time attestation: Total time managing care of this patient today ____ minutes. Discharge coordination time: Greater than 30 minutes Quality: Safe Use of Opioids Does Pt have an Active Cancer Diagnosis on the Problem List?: No Quality: Stroke Does the patient have a stroke diagnosis?: No Physical Exam Vital Signs: Vital Signs: Last Vital Signs Temp 97.4 F 10/08/22 08:00 Pulse 73 10/08/22 08:00 Resp 18 10/08/22 08:00 BP 148/83 H 10/08/22 08:00 Pulse Ox 94 10/08/22 08:00 O2 Del Method 10/08/22 08:00 BMI result Body Mass Index 31.8 Const: Other: Constitutional : Awake, interactive, not in distress Neck : Normal inspection, Supple Cardiovascular : RRR, no JVP, no lower extremity edema Respiratory : good bilateral air entry, no crackles, wheezes or rhonchi Gastrointestinal: soft, lax, Normal bowel sounds, Non tender Skin : Warm, Dry S keletal:Point tenderness over the left flank, no referred pain, no rash or swelling Neurological : Alert & oriented x3, No focal deficit , CN 2-12 within normal DS: Data Data Completed and Pending Labs on day of discharge: Laboratory Results - last 24 hr 10/07/22 10/07/22 10/07/22 15:01 18:04 19:32 WBC RBC Hgb Hct MCV MCH MCHC RDW Plt Count MPV Absolute Nucleated RBC Nucleated RBC % (auto) Sodium Potassium Chloride Carbon Dioxide Anion Gap BUN Creatinine Estim Creat Clear Calc Estimated GFR POC Glucose 120 H 123 H Fasting Glucose Calcium Influenza Type A (PCR) NEGATIVE Influenza Type B (PCR) NEGATIVE RSV RNA Qual (PCR) NEGATIVE SARS-CoV-2 RNA (RT-PCR) NEGATIVE 10/08/22 10/08/22 10/08/22 05:29 05:29 07:31 WBC 7.4 RBC 3.63 L Hgb 10.3 L Hct 29.8 L MCV 82.1 MCH 28.4 MCHC 34.6 RDW 14.5 Plt Count 439 H MPV 8.5 L Absolute Nucleated RBC 0.000 Nucleated RBC % (auto) 0.0 Sodium 138 Potassium 4.8 Chloride 103 Carbon Dioxide 26 Anion Gap 14 BUN 29 H Creatinine 1.44 H Estim Creat Clear Calc 73.1 Estimated GFR 51 POC Glucose 98 Fasting Glucose 87 Calcium 9.1 Influenza Type A (PCR) Influenza Type B (PCR) RSV RNA Qual (PCR) SARS-CoV-2 RNA (RT-PCR) 10/08/22 11:39 WBC RBC Hgb Hct MCV MCH MCHC RDW Plt Count MPV Absolute Nucleated RBC Nucleated RBC % (auto) Sodium Potassium Chloride Carbon Dioxide Anion Gap BUN Creatinine Estim Creat Clear Calc Estimated GFR POC Glucose 117 H Fasting Glucose Calcium Influenza Type A (PCR) Influenza Type B (PCR) RSV RNA Qual (PCR) SARS-CoV-2 RNA (RT-PCR) Imaging CT scan - abdomen: Radiologist's impression: ITS Impressions Abdomen/Pelvis CT 10/06/22 04:39 IMPRESSION: * No urinary calculi or hydronephrosis. * Pancolonic diverticulosis, most concentrated within sigmoid colon. No evidence of diverticulitis. Fleischner guidelines were followed. Hand X-Ray 10/06/22 04:43 FINDINGS/IMPRESSION: Acute comminuted minimally displaced fractures of the third and fourth distal phalangeal franklyn, slightly more pronounced involving the fourth digit. Associated soft tissue swelling is present. No radiopaque foreign bodies. Discharge Plan Discharge Anticipated Discharge Date/Time: 10/08/22 13:00 Patient Disposition: Home, Self-Care Discharge Diagnosis: Acute kidney injury Referrals: Jeet Florez PA [Primary Care Provider] - 1 Week Discharge Medications: New oxycodone 5 mg Tablet 5 mg PO Q8H PRN (Reason: Pain, Moderate (Pain Scale 4-6) Qty: 12 0RF Rx Instructions: Partial Fill upon patient request. Continued metformin 500 mg tablet 2 tab PO BID hydralazine 10 mg tablet 1 tab PO BID verapamil 360 mg capsule,ext rel. pellets 24 hr 1 cap PO BEDTIME quetiapine 200 mg tablet 1 tab PO BEDTIME quetiapine 100 mg tablet 1 tab PO BID famotidine 20 mg tablet 1 tab PO BID Held chlorthalidone 25 mg tablet 1 tab PO DAILY Hold Instructions: Until you see dr Wells (nephrology) Discharge Orders: Discharge Order (Routine); Ordered 10/08/22 Ordered By: Balbir Mandel Diet: Advance to usual diet Activity on Discharge: As tolerated Stand Alone Forms: Patient Portal Discharge page Other Ambulatory Orders: Basic Metabolic Panel (Routine) Timeframe: 5 Days Facility: [facility] - Location: Laboratory Ordered By: Balbir Mandel Care Plan Goals: Read below Health Concerns: Read below Plan of Treatment: Read below Assessment: You were admitted to the hospital for evaluation of loin pain. images were negative for any acute findings. noted to have kidney injury that was evaluated by dr Wells from nephrology. improved after IV fluids and holdin chlorathalidone. Continue to hold Chlorathalidone until you follow up with Nephrology in office Tylenol, Lidocaine patches & Oxycodone as needed for pain Follow blood work as outpatient
== END 2022-10-08 15:24 | disposition home or self-care (01) | DRG 684 ==
LOC: HO.ED 05:15 → HO.EDOVER 05:57 → HO.S3 16:49
PROVIDERS: Internal Medicine; Physician Assistant; Admitting Provider Student in an Organized Health Care Education/Training Program; Emergency Provider Emergency Medicine; PCP Physician Assistant Medical; Visit Provider Student in an Organized Health Care Education/Training Program
DX: N17.0 Acute kidney failure with tubular necrosis (principal); I12.9 Hypertensive chronic kidney disease with stage 1 through stage 4 chronic kidney disease, or unspecified chronic kidney disease; F31.9 Bipolar disorder, unspecified; E78.5 Hyperlipidemia, unspecified; E11.22 Type 2 diabetes mellitus with diabetic chronic kidney disease; N18.30 Chronic kidney disease, stage 3 unspecified; S62.633A Displaced fracture of distal phalanx of left middle finger, initial encounter for closed fracture; T39.395A Adverse effect of other nonsteroidal anti-inflammatory drugs [NSAID], initial encounter; S62.635A Displaced fracture of distal phalanx of left ring finger, initial encounter for closed fracture; W20.8XXA Other cause of strike by thrown, projected or falling object, initial encounter; Z20.822 Contact with and (suspected) exposure to COVID-19; Z85.528 Personal history of other malignant neoplasm of kidney; Z88.8 Allergy status to other drugs, medicaments and biological substances; Z79.84 Long term (current) use of oral hypoglycemic drugs; Z79.899 Other long term (current) drug therapy
CPT/HCPCS: 0241U; 36415; 73120; 74176; 80048; 80076; 81001; 82728; 82947; 83540; 83690; 84156; 84300; 85025; 85027; 99285; J1650; J2270

== ENCOUNTER 2024-05-11 11:05 | Emergency (ER) | payer MEDICARE, SELFPAY ==
--- NOTE | ~2024-05-11 | XR_ITS ---
EXAMINATION: XR KNEE, LEFT CLINICAL INFORMATION: Pain injury COMPARISON: None available. TECHNIQUE: Four views of the left knee. FINDINGS: Small linear ossification adjacent to the medial femoral condyle likely reflects prior medial collateral ligament tear. There is mild arthrosis of the medial compartment manifested by small marginal osteophytes without joint space narrowing. Lateral compartment and patellofemoral compartment unremarkable. No joint effusion. Slight cortical thickening along the proximal diaphysis of the fibula could reflect normal variation or old fracture. XR/XR knee LT 3V IMPRESSION: 1. No acute abnormality. 2. Mild arthrosis of the medial compartment. 3. Probable sequela of old medial collateral ligament tear.
--- NOTE | ~2024-05-11 | CT_ITS ---
EXAMINATION: CT CHEST WITH IV CONTRAST CT ABDOMEN AND PELVIS WITH IV CONTRAST CLINICAL INFORMATION: History of pain, injury, fall. COMPARISON: Abdomen and pelvis CT from 10/06/2022. TECHNIQUE: Multidetector CT imaging examination of the chest, abdomen and pelvis was performed with intravenous administration of 85 mL Omnipaque 350. Axial images are displayed at 0.6 mm and 5 mm slice thickness. Coronal and sagittal reformatted images were generated at the technologist's workstation and submitted for review. This CT examination was performed using dose optimization techniques as appropriate, variously including the following: *Automated exposure control *Adjustment of mA and/or kV according to patient size (this includes techniques or standardized protocols for targeted exams where dose is matched to indication/reason for exam; i.e. extremities or head) *Use of iterative reconstruction technique DLP: 527 mGy-cm for the chest portion of the exam and 1060.1 mGy-cm for the abdomen/pelvis CT portion of the exam. FINDINGS: CHEST - LUNGS AND PLEURA: Trachea and central airways are widely patent and normal in caliber. The right hemidiaphragm is chronically elevated. No pulmonary consolidation, pneumothorax or pleural effusion. CARDIOVASCULAR: The heart size is normal. No pericardial effusion. Pulmonary arteries and thoracic aorta are normal in caliber. No acute aortic injury. No mediastinal hematoma. MEDIASTINUM/LOWER NECK: No mediastinal mass. The esophagus and thyroid gland are unremarkable. LYMPHATICS: No pathologic sized axillary, hilar or mediastinal lymph nodes. BONES AND THORACIC SOFT TISSUES: No chest wall hematoma. There is joint space narrowing, subarticular cystic change and osteophyte formation at the degenerated glenohumeral joints. Thoracic vertebra have well preserved height and alignment. Mild spondylosis of the thoracic spine. Degenerative narrowing of disc spaces and osteophyte formation in the visualized lower cervical spine. ABDOMEN AND PELVIS - HEPATOBILIARY: Diffuse hepatic steatosis. No evidence of liver laceration or perihepatic fluid collection. Gallbladder is unremarkable. No dilated bile ducts. PANCREAS: No edema, mass or pancreatic ductal dilatation. SPLEEN: Normal. ADRENAL GLANDS: Normal. KIDNEYS AND URETERS: Kidneys are normal in size. No nephrolithiasis or hydronephrosis. A few bilateral simple appearing renal cysts are detected. No renal imaging follow-up recommended. The ureters are unremarkable. BOWEL AND PERITONEUM: No dilated bowel loops. No hemoperitoneum or pneumoperitoneum. The appendix is normal. There are diverticula of the colon without evidence of diverticulitis. ABDOMINAL WALL: Old small fat-containing umbilical and periumbilical hernias are noted. VESSELS: There is mild atherosclerotic calcification of the abdominal aorta without aneurysm. Inferior vena cava is normal. No retroperitoneal hematoma. LYMPH NODES: No pathologic sized lymph nodes in the abdomen or pelvis. No inguinal lymphadenopathy. BLADDER: Normal. PELVIC VISCERA: Prostatomegaly. No pelvic mass or pelvic free fluid. MUSCULOSKELETAL: Pelvic bones and proximal femurs are intact. Mild spondylosis of the lumbar spine. CT/CT abdomen pelvis w IV con IMPRESSION: * No acute traumatic pathology in the chest, abdomen or pelvis. * Colonic diverticulosis without diverticulitis. * Diffuse hepatic steatosis.
--- NOTE | ~2024-05-11 | XR_ITS ---
EXAMINATION: XR ANKLE, LEFT XR FOOT, LEFT CLINICAL INFORMATION: Left ankle and foot pain following a fall. COMPARISON: Left foot radiographs dated 08/28/2022. TECHNIQUE: AP, lateral, and mortise views of the left foot and ankle were obtained. FINDINGS: Left Ankle: No acute fracture or dislocation. Prominent dystrophic ossification within the distal tibiofibular syndesmosis, which could represent sequela of a remote injury. Corticated ossifications adjacent to the medial malleolus consistent with loose bodies versus remote, unfused fracture fragments. The ankle mortise is maintained. Small tibiotalar marginal osteophytes. No concerning lytic or blastic osseous lesion. Left Foot: Mildly comminuted and displaced fracture through the anterolateral aspect of the calcaneal body extending into the calcaneal neck and head. There are extensions to the calcaneocuboid articular surface with cortical step-off measuring up to 0.2 cm. Osteoarthritis at the tarsometatarsal joints, unchanged. Postsurgical change redemonstrated at the first metatarsal head. XR/XR foot LT min 3V IMPRESSION: LEFT ANKLE: No acute fracture or dislocation. Mild tibiotalar osteoarthritis. Comment dystrophic ossification within the distal tibiofibular syndesmosis. LEFT FOOT: 1. Mildly comminuted and displaced fracture through the anterolateral aspect of the calcaneal body extending into the calcaneal neck and head. Extensions to the calcaneocuboid articular surface with cortical step-off measuring up to 0.2 cm. 2. Degenerative arthritis at the tarsometatarsal joints, unchanged.
--- NOTE | ~2024-05-11 | XR_ITS ---
EXAMINATION: XR ANKLE, LEFT XR FOOT, LEFT CLINICAL INFORMATION: Left ankle and foot pain following a fall. COMPARISON: Left foot radiographs dated 08/28/2022. TECHNIQUE: AP, lateral, and mortise views of the left foot and ankle were obtained. FINDINGS: Left Ankle: No acute fracture or dislocation. Prominent dystrophic ossification within the distal tibiofibular syndesmosis, which could represent sequela of a remote injury. Corticated ossifications adjacent to the medial malleolus consistent with loose bodies versus remote, unfused fracture fragments. The ankle mortise is maintained. Small tibiotalar marginal osteophytes. No concerning lytic or blastic osseous lesion. Left Foot: Mildly comminuted and displaced fracture through the anterolateral aspect of the calcaneal body extending into the calcaneal neck and head. There are extensions to the calcaneocuboid articular surface with cortical step-off measuring up to 0.2 cm. Osteoarthritis at the tarsometatarsal joints, unchanged. Postsurgical change redemonstrated at the first metatarsal head. XR/XR ankle LT min 3V IMPRESSION: LEFT ANKLE: No acute fracture or dislocation. Mild tibiotalar osteoarthritis. Comment dystrophic ossification within the distal tibiofibular syndesmosis. LEFT FOOT: 1. Mildly comminuted and displaced fracture through the anterolateral aspect of the calcaneal body extending into the calcaneal neck and head. Extensions to the calcaneocuboid articular surface with cortical step-off measuring up to 0.2 cm. 2. Degenerative arthritis at the tarsometatarsal joints, unchanged.
--- NOTE | ~2024-05-11 | CT_ITS ---
EXAMINATION: CT HEAD W/O IV CONTRAST CT CERVICAL SPINE W/O IV CONTRAST CLINICAL INFORMATION: History of pain, injury, fall. COMPARISON: CT of head and facial bones from 06/14/2017. TECHNIQUE: Head - Contiguous axial imaging of the head was performed from the skull base to the vertex without the administration of intravenous contrast, and axial images are reconstructed at 2 mm and 5 mm slice thickness. Cervical spine - A volumetric, helical CT acquisition of the cervical spine was obtained without contrast; in addition to the standard set of axial images, multiplanar reformatted images were provided in the coronal and sagittal imaging planes. This CT examination was performed using dose optimization techniques as appropriate, variously including the following: *Automated exposure control *Adjustment of mA and/or kV according to patient size (this includes techniques or standardized protocols for targeted exams where dose is matched to indication/reason for exam; i.e. extremities or head) *Use of iterative reconstruction technique DLP: 4129 mGy-cm (total, for CT exams of the head, cervical spine, chest, abdomen and pelvis; this includes 826.43 mGy-cm for the cervical spine and 905.19 mGy-cm for the head. FINDINGS: HEAD: No acute intracranial findings. Gotti to white matter differentiation is preserved. No evidence of intracranial hemorrhage, major vascular territory infarction, focal mass effect or midline shift. The ventricles have normal size and configuration. No hydrocephalus or extra-axial fluid collections. The calvarium is intact. There is mucus/mucosal thickening at inferior aspect of each maxillary antrum. No air-fluid levels within paranasal sinuses. The mastoid air cells are well aerated. The temporomandibular joints are intact. The orbits and globes are unremarkable. CERVICAL SPINE: There is motion on the initial set of images which were repeated. The craniocervical junction is intact. No evidence of dens fracture. The cervical vertebra are normal in height. The anterior and posterior elements are intact. No prevertebral edema or soft tissue hematoma. There is multilevel degenerative disease and facet arthropathy. The degenerative changes are associated with reversal of lordosis of the cervical spine. At C2-C3, the facet osteoarthritis is worse on the right than left and there is approximately 0.2 cm of degenerative anterolisthesis of C2 on C3. Otherwise, cervical vertebra have well preserved alignment. Posterior disc-osteophyte complexes cause mild multilevel cervical spinal canal stenosis at C4-C5, C5-C6, and C6-C7. Thyroid gland is unremarkable. The visualized lung apices are normal. CT/CT cervical spine wo IV con IMPRESSION: * No intracranial hemorrhage or other acute intracranial pathology. * No fractures within the extensively degenerated cervical spine.
--- NOTE | 2024-05-11 11:08 | ED_ITS ---
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 (ED), Foot Fracture in Adults (ED), Calcaneal Fracture (ED) Additional Instructions: DO NOT PUT ANY WEIGHT ON YOUR LEFT LOWER EXTREMITY. Elevated your left lower extremity whenever you are stationary. Do NOT get the splint wet. If your toes start to tingle, feel different, or change colors - please loosen your GREGG wraps. If you find yourself loosening your GREGG wrap to the point of seeing the white splint material - STOP and return to the ER immediately. Follow up with your primary care provider and an reliability specialist. Return to the emergency department immediately if your symptoms worsen or if you develop any dizziness, shortness of breath, difficulty breathing, chest pain, blurry vision, loss of vision, nausea, vomiting, abdominal pain, fever, chills, back pain, or any other complaints. Prescriptions: No Action metformin 500 mg tablet 2 tab PO BID hydralazine 10 mg tablet 1 tab PO BID verapamil 360 mg capsule,ext rel. pellets 24 hr 1 cap PO BEDTIME quetiapine 200 mg tablet 1 tab PO BEDTIME chlorthalidone 25 mg tablet 1 tab PO DAILY Hold Instructions: Until you see dr Wells (nephrology) quetiapine 100 mg tablet 1 tab PO BID famotidine 20 mg tablet 1 tab PO BID oxycodone 5 mg Tablet 5 mg PO Q8H PRN (Reason: Pain, Moderate (Pain Scale 4-6) Qty: 12 0RF Rx Instructions: Partial Fill upon patient request. Referrals: [facility] [Provider Group] (Call to establish and follow up with a primary care provider. If you already have a primary care provider, please follow up with them.) [facility] [Provider Group] [facility] [Provider Group] [facility] [Provider Group] (Call to establish and follow up with an orthopedic provider. ) Print Language: Portuguese
[2024-05-11 11:09] VITALS: BP 160/80; PULSE 100; O2SAT 96
[2024-05-11 11:14] VITALS: BP 139/77; PULSE 90; RESP 16; TEMP 36.6; O2SAT 94; BMI 32.5
[2024-05-11 12:52] LABS: MANUAL DIFF FLAG NO
[2024-05-11 13:00] LABS: Prothrombin Time 11.6 SEC (11.1-13.3)
[2024-05-11 13:03] LABS: Partial Thromboplastin Time 28.4 SEC (26.0-36.8)
[2024-05-11 13:11] LABS: Ethanol 47 mg/dL
[2024-05-11 13:29] LABS: Basophils Absolute Auto 0.1 X10*3/uL (0.0-0.2); Basophils Percent Auto 0.6 % (0-2); Eosinophils Percent Auto 0.1 % (0-4); Hematocrit 35.6 % (42.0-52.0); Hemoglobin 12.6 g/dl (14.0-18.0); Imm Gran Abs Auto 0.02 X10*3/uL (0.00-0.03); Imm Gran Pct Auto 0.2 % (0.0-0.4); Lymphocytes Absolute Auto 1.2 X10*3/uL (1.2-4.9); Lymphocytes Percent Auto 13.4 % (20-40); Mean Corpuscular HGB Conc 35.4 g/dl (31.0-36.0); Mean Corpuscular Hemoglobin 28.3 pg (27.0-33.0); Mean Platelet Volume 9.3 fL (9.4-12.4); Monocytes Absolute Auto 0.8 X10*3/uL (0.1-1.2); Monocytes Percent Auto 8.3 % (2-11); Neutrophils Percent Auto 77.4 % (45-73); Platelet Count 263 X10*3/uL (160-400); Red Blood Count 4.45 X10*6/uL (4.60-5.80)
[2024-05-11] MEDS: Morphine Sulfate 2 MG/ML CARTRIDGE 1 MG IVPUSH (13:35)
[2024-05-11 13:43] LABS: Alanine Aminotransferase 21 U/L (0-40); Albumin Level 4.5 g/dL (3.5-5.0); Alkaline Phosphatase 63 U/L (39-117); Anion Gap 18 (12-20); Aspartate Amino Transferase 23 U/L (5-37); Bilirubin Total 0.4 mg/dL (0.0-1.0); Blood Urea Nitrogen 14 mg/dL (9-16); Calcium 9.5 mg/dL (8.4-10.2); Carbon Dioxide 23 mmol/L (22-29); Chloride 102 mmol/L (96-108); Creatinine Clr Calc Pharmacy 70.6; Estimated Glomerular Filt Rate 49; Glucose Random 78 mg/dL (60-115); Potassium 4.2 mmol/L (3.3-5.1); Sodium 139 mmol/L (135-145); Total Protein 7.3 g/dL (6.5-8.0)
[2024-05-11 13:45] LABS: Appearance Urine Clear; Color Urine Yellow; Glucose Urine UA Negative (Negative); Leukocyte Esterase Urine Negative (Negative); Nitrite Urine Negative (Negative); PH 5.5 (5.0-9.0); Specific Gravity - Urine 1.015 (1.005-1.025); UMIC TRIGGER UACC YES; Urine Blood Negative (Negative); Urine Ketones Negative (Negative); Urine Protein 30 (1+) mg/dL (Neg-Trace)
[2024-05-11 13:48] LABS: Bacteria Urine None Seen (None Seen); Hyaline Casts Urine 0-2 /LPF (0-2); RBC Urine 0-2 /HPF (0-2); Squamous Epithelial Cell Urine 0-2 /HPF (0-2); WBC Urine 0-5 /HPF (0-5)
[2024-05-11 14:02] LABS: Amphetamine Screen Urine Not Detected (Not Detect); Barbiturates, Urine Not Detected (Not Detect); Benzodiazepines Screen Urine Not Detected (Not Detect); Buprenorphine Scr Not Detected (Not Detect); Cannabinoid Screen Urine Not Detected (Not Detect); Cocaine Screen Urine POSITIVE (Not Detect); Fentanyl, urine POSITIVE (Not Detect); Methadone Screen, Urine Not Detected (Not Detect); Opiate Screen Urine Not Detected (Not Detect); Oxycodone Screen Urine Not Detected (Not Detect); Phencyclidine Screen Urine Not Detected (Not Detect)
[2024-05-11] MEDS: iohexoL 350 MG/ML 100 ML INFUS..BTL IV (14:45)
[2024-05-11 14:51] VITALS: RESP 16
[2024-05-11] MEDS: HYDROmorphone HCl 0.5 MG/0.5 ML SYRINGE IVPUSH (14:51)
[2024-05-11 15:00] VITALS: BP 159/83; PULSE 81; RESP 16; TEMP 36.6
[2024-05-11 16:21] VITALS: BP 166/95; PULSE 83; RESP 18; TEMP 36.6; O2SAT 93
[2024-05-11 17:40] VITALS: BP 166/95; PULSE 83; RESP 18; TEMP 36.6; O2SAT 93
== END 2024-05-11 17:40 | disposition home or self-care (01) ==
PROVIDERS: Physician Assistant Medical; Emergency Provider Emergency Medicine
DX: S92.002A Unspecified fracture of left calcaneus, initial encounter for closed fracture (principal); M25.572 Pain in left ankle and joints of left foot; M79.609 Pain in unspecified limb; R51.9 Headache, unspecified; M54.2 Cervicalgia; R07.89 Other chest pain; M25.562 Pain in left knee; R10.9 Unspecified abdominal pain; X58.XXXA Exposure to other specified factors, initial encounter; Y33.XXXA Other specified events, undetermined intent, initial encounter; Y93.89 Activity, other specified; Y92.89 Other specified places as the place of occurrence of the external cause; Y99.8 Other external cause status; Z51.81 Encounter for therapeutic drug level monitoring; Z79.899 Other long term (current) drug therapy
CPT/HCPCS: 36415; 70450; 71260; 72125; 73562; 73610; 73630; 74177; 80053; 80307; 81001; 85025; 85610; 85730; 96374; 96375; 99283; 99284; J1170; J2270; Q9967

== ENCOUNTER 2024-05-16 13:43 | Outpatient (AMB) | payer MEDICARE, MEDICAID, SELFPAY ==
--- NOTE | 2024-05-16 13:45 | MHC.OFFVIS ---
Intake Visit Reasons: FC - LT Calcaneal fracture Allergies GREGG Inhibitors [GREGG INHIBITORS] Allergy (Severe, Verified 05/11/24 11:15) ANAPHYLAXIS lisinopril Allergy (Unknown, Verified 05/11/24 11:15) Anaphylaxis HPI HPI FC - LT Calcaneal fracture: Details: 58-year-old male who presents in the office today, as a new patient, for an evaluation of left ankle pain. The patient presented in the ED on 05/11/24 status post jumping off the roof of his car. The patient reported to the ED he had been drinking alcohol and left his keys in his car. He decided to climb on the roof of the vehicle with the intent to enter the car through the sunroof. Due to being unable to enter the vehicle, he jumped off the roof of the car, landing on his left ankle, causing it to twist. X-rays were obtained. He was placed in a posterior short leg splint with stirrups. ? ? Patient has a significant medical history of diabetes mellitus, and alcohol use. ? ? 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 ? 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 Able to move all digits. Sensation intact. Pedal pulse intact. Skin intact. Office Procedures Casting/Splints [id number] Leg splint application Procedure code (CPT) selection complete Assessment & Plan Assessment & Plan (1) Left calcaneal fracture: Code(s): S92.002A - Unspecified fracture of left calcaneus, initial encounter for closed fracture Category: Medical Plan Mr. Jaramillo is a 58-year-old male who presents in the office today, as a new patient, for an evaluation of left ankle pain. The patient presented in the ED on 05/11/24 status post jumping off the roof of his car. The patient reported to the ED he had been drinking alcohol and left his keys in his car. He decided to climb on the roof of the vehicle with the intent to enter the car through the sunroof. Due to being unable to enter the vehicle, he jumped off the roof of the car, landing on his left ankle, causing it to twist. X-rays were obtained. He was placed in a posterior short leg splint with stirrups.? Patient has a significant medical history of diabetes mellitus, and alcohol use.? 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 ? The patient was placed back into the posterior splint/Buckly Porras and will remain non-weight bearing. An order was placed for a stat CT scan for further evaluate the extent of the left foot fracture. The patient?s conservative versus surgical treatment options will be discussed after the CT is obtained. A prescription for oxycodone-acetaminophen 5-35 mg PO Q6H PRN was sent to the pharmacy. I also educated the patient on the importance of elevation his left lower extremity 3 pillows above his heart level to aid in reducing the?edema.? I would like for him to follow-up over the phone. Follow-up will be after the CT of the left foot/ankle is obtained. ? ? X-rays of the left foot, obtained on 05/11/24, revealed: ? 1. Mildly comminuted and displaced fracture through the? anterolateral aspect of the calcaneal body extending into the calcaneal neck and head. Extensions to the calcaneocuboid articular surface with cortical step-off measuring up to 0.2 cm.? 2. Degenerative arthritis at the tarsometatarsal joints, unchanged.? Medications: New oxycodone-acetaminophen 5-325 mg Partial Fill upon patient request. 1 tab PO Q6H PRN 28 tabs 0RF pain 7 days ibuprofen 800 mg PO TID 90 tabs 0RF 30 days Patient Instructions: Scribed by Marielos Fischer veterinary medical officer, for Keyonna Stoddard PA-C on 05/16/2024 at 1:49 pm, EST.? Coding Level of Care Code New Pt Level 4 (48092) Diagnoses Left calcaneal fracture S92.002A CPT Codes Splint - CPT: 16613-Sxayn Leg splint application ([id number])
== END 2024-05-16 14:23 | disposition home or self-care (01) ==
PROVIDERS: PCP Physician Assistant Medical; Visit Provider Physician Assistant
DX: S92.002A Unspecified fracture of left calcaneus, initial encounter for closed fracture (principal)
CPT/HCPCS: 28400; 99204

== ENCOUNTER → 2024-05-16 13:43 | Outpatient (BNVA) | payer MEDICARE, SELFPAY | PROVIDERS: PCP Physician Assistant Medical; Visit Provider Physician Assistant | DX: S92.002A Unspecified fracture of left calcaneus, initial encounter for closed fracture (principal); X58.XXXA Exposure to other specified factors, initial encounter; Y93.39 Activity, other involving climbing, rappelling and jumping off; Y92.9 Unspecified place or not applicable; Y99.9 Unspecified external cause status | CPT/HCPCS: 28400; 99202 ==

== ENCOUNTER 2024-05-17 13:39 | Outpatient (REF) | payer MEDICARE, SELFPAY ==
--- NOTE | ~2024-05-17 | CT_ITS ---
EXAMINATION: CT left foot without contrast INDICATION: S92.002A - Unspecified fracture of left calcaneus, initial encounter for... COMPARISON: Radiographs dated 05/11/2024 TECHNIQUE: Multidetector volumetric imaging was obtained through the left foot without contrast. Multiplanar reformatted images in coronal and sagittal orientations were submitted. This CT examination was performed using dose optimization techniques as appropriate, variously including the following: *Automated exposure control *Adjustment of mA and/or kV according to patient size (this includes techniques or standardized protocols for targeted exams where dose is matched to indication/reason for exam; i.e. extremities or head) *Use of iterative reconstruction technique DLP: 140 mGy-cm FINDINGS: There is a comminuted anterior fracture of the calcaneus extending to the posterior facet with dominant sagittally oriented components through the base of the sustentaculum talus and to the lateral third of the articular surface, most consistent with a Mustafa type III AC. At the more lateral fracture line, there is distraction of the fragments medial to lateral up to 5 mm with 3 mm of depression of the more medial fragment. Relative depression of the posterior facet articular fragments of the calcaneus results in flattening of Boehler's angle. The calcaneal fracture also extends to the plantar, lateral, and medial cortices. Anteriorly, the calcaneal fracture extends into the articular surface at the calcaneocuboid joint aneurysms of the dorsal cortex of the anterior process of the calcaneus. There is solid osseous bridging across the distal tibiofibular syndesmosis. Slight widening of the medial ankle mortise is associated with multiple small chronic osseous fragments in the region of the deltoid, most consistent with a remote injury. Small marginal osteophytes of the talocrural joint are consistent with mild posttraumatic arthritis. Additional mild osteophytosis is present in the Chopart joint and the naviculocuneiform joint. There is moderate to severe osteoarthritis at the second TMT joint with nonuniform cartilage loss, marginal osteophytes, articular sclerosis, and subchondral cystic change. More mild osteoarthritis is noted in the other joints. Status post first metatarsal osteotomy. There is an avulsion fracture at the medial margin of the great toe proximal phalangeal base which is chronic in nature. No acute fractures in the forefoot. Mild to moderate osteophytosis of the first MTP joint and great toe IP joint as well as the second MTP joint. Mild/moderate multifocal osteophytosis present in the interphalangeal joints as well, most notable at the second and third toes. Soft tissues are swollen with skin thickening and subcutaneous edema. The tendons are intact. No tears or tenosynovitis. Intrinsic foot musculature is unremarkable. CT/CT foot LT wo IV con IMPRESSION: 1. Comminuted, intra-articular fracture of the calcaneus, likely Mustafa type III AC. There is involvement of the cuboid at the calcaneocuboid joint without displacement. 2. Moderate to severe osteoarthritis at the second TMT joint. More mild osteoarthritis in the other joints of the foot. 3. Chronic avulsion fracture at the medial margin of the great toe proximal phalangeal base. 4. Solid osseous bridging across the distal tibiofibular syndesmosis. Electronically signed by: Feliciano Singletary MD 05/17/2024 05:27 PM EDT
== END 2024-05-17 13:40 | disposition home or self-care (01) ==
LOC: HO.CT 13:39
PROVIDERS: PCP Physician Assistant Medical; Visit Provider Physician Assistant
DX: S92.002A Unspecified fracture of left calcaneus, initial encounter for closed fracture (principal)
CPT/HCPCS: 73700

== ENCOUNTER 2024-08-01 11:19 | Emergency (ER) | payer MEDICARE, SELFPAY ==
--- NOTE | ~2024-08-01 | CT_ITS ---
EXAMINATION: CT CHEST WITHOUT CONTRAST CLINICAL INFORMATION: Left chest wall/flank pain COMPARISON: CT dated May 11, 2024 TECHNIQUE: Multidetector volumetric CT imaging of the chest was done. Axial MIP volume rendering provided. Sagittal and coronal reformatted images were obtained. This CT examination was performed using dose optimization techniques as appropriate, variously including the following: *Automated exposure control *Adjustment of mA and/or kV according to patient size (this includes techniques or standardized protocols for targeted exams where dose is matched to indication/reason for exam; i.e. extremities or head) *Use of iterative reconstruction technique DLP: 408 mGy-cm FINDINGS: LUNGS: No consolidation. No gross foreign nodule. No bronchiectasis. Honeycombing. Atelectasis, right lung base. MEDIASTINUM: No lymphadenopathy. No pericardial effusion. No aneurysm, thoracic aorta. CORONARY ARTERY CALCIFICATION: No PLEURA: No perfusion or pneumothorax. AXILLA: No lymphadenopathy. UPPER ABDOMEN: Prominent lateral soft tissue fullness in the adrenal glands measuring less than 11 Hounsfield units. 6 cm fat density lesion within the muscles of the left posterior upper thorax. OSSEOUS STRUCTURES: Multilevel spondylosis more conspicuous at C7-T1 and T2-3. S-shaped curvature of the thoracolumbar spine which could be positional. CT/CT chest wo IV con IMPRESSION: No acute airspace disease. 6 cm lipoma, posterior left upper thorax. Multilevel spondylosis, axial skeleton. Probable adenoma, adrenal glands. Fleischner guidelines were followed. Electronically signed by: Mike Zheng MD 08/01/2024 02:56 PM MIC[facility]
--- NOTE | ~2024-08-01 | XR_ITS ---
EXAMINATION: XR RIBS, LEFT CLINICAL INFORMATION: Fall, pain, BB placed at site of most pain lower left ribs, question fracture after fall. COMPARISON: 05/11/2024 CT chest, abdomen and pelvis, chest 08/09/2022. TECHNIQUE: 7 views of the left ribs. FINDINGS: There is no gross pneumothorax. Heart size is normal. Lung volumes are low. Mild bibasilar streaky opacities, right greater than left. Probable trace right pleural effusion. No displaced lower left rib fracture is appreciated. XR/XR ribs LT min 3V w CXR1V IMPRESSION: 1. No displaced lower left rib fracture appreciated. 2. Mild bibasilar streaky opacities, right greater than left. Probable trace right pleural effusion. This study was presented today August 01, 2024 for interpretation. Stat results provided at this time as requested by referring provider. Electronically signed by: Josephine Mitchell MD 08/01/2024 01:41 PM EST
[2024-08-01 11:37] VITALS: BP 120/68; PULSE 79; RESP 18; TEMP 36.1; O2SAT 100; BMI 31.2
--- NOTE | 2024-08-01 11:44 | ED_ITS ---
HPI - General Adult General Chief complaint: Back Pain/Injury Stated complaint: fall inj l rib and back Time Seen by Provider: 08/01/24 13:59 Source: patient, RN notes reviewed and old records reviewed Mode of arrival: ambulatory History of Present Illness ED Provider: Alva Mares PA-C HPI narrative: 58-year-old male with a past medical history of HTN, diabetes, depression, ETOH abuse, calcaneal fracture, presenting to the ED complaining of left flank/ back pain x1 week. Admits saw PCP and had outpatient CXR which was unremarkable last week, however states then had fall on stairs, missed a step while using his crutches and fell onto ribs. Does report hitting head, denies LOC. Denies head or neck pain at this time. Reports continued pain to same left rib site. Denies hematuria, dysuria, incontinence /retention, numbness /tingling, abdominal pain Related Data Home Medications ?Medication ?Instructions ?Recorded ?Confirmed chlorthalidone 25 mg tablet 1 tab PO DAILY 10/06/22 10/06/22 famotidine 20 mg tablet 1 tab PO BID 10/06/22 10/06/22 hydralazine 10 mg tablet 1 tab PO BID 10/06/22 10/06/22 metformin 500 mg tablet 2 tab PO BID 10/06/22 10/06/22 quetiapine 100 mg tablet 1 tab PO BID 10/06/22 10/06/22 quetiapine 200 mg tablet 1 tab PO BEDTIME 10/06/22 10/06/22 verapamil 360 mg 24 hr 1 cap PO BEDTIME 10/06/22 10/06/22 capsule,extended release Previous Rx's ?Medication ?Instructions ?Recorded oxycodone 5 mg tablet 5 mg PO Q8H PRN Pain, Moderate 10/08/22 (Pain Scale 4-6 #12 tabs ibuprofen 800 mg tablet 800 mg PO TID 30 days #90 tabs 05/16/24 oxycodone-acetaminophen 5 mg-325 1 tab PO Q6H PRN pain 7 days #28 05/16/24 mg tablet tabs lidocaine 5 % topical patch 1 patch topical DAILY PRN pain #30 08/01/24 (Lidoderm) ea Allergies Allergy/AdvReac Type Severity Reaction Status Date / Time GREGG Inhibitors Allergy Severe ANAPHYLAXIS Verified 08/01/24 11:41 [GREGG INHIBITORS] lisinopril Allergy Unknown Anaphylaxis Verified 08/01/24 11:41 Review of Systems 2 Review of Systems: Yes all other systems are reviewed and are negative Constitutional: Constitutional: Reports as per [facility] Past Medical History Attestation statement: The following information was validated with the patient. 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 Physical Exam ED Vital Signs: Vital Signs - 24 hr 08/01/24 11:37 08/01/24 15:28 08/01/24 16:46 Temperature 97 F 97.5 F 97.5 F Pulse Rate 79 75 75 Respiratory Rate 18 17 17 Blood Pressure 120/68 128/62 128/62 Pulse Oximetry 100 100 100 Oxygen Delivery Method Room Air Room Air Room Air BMI result Body Mass Index 31.2 Const Other: appears under the influence General: cooperative and no acute distress Orientation/consciousness: patient oriented x3 HENMT Head: Yes normal to inspection and Yes atraumatic Ears: hearing grossly normal bilaterally General nose exam: Normal external nose present Face and sinus: Yes normal facial exam Eyes General: appearance normal, both eyes and all related structures EOM: EOMs intact bilaterally Neck Neck: Yes normal visual inspection and Yes no meningeal signs Chest Other: + left flank/ rib reproducible tenderness. No erythema/ ecchymosis or rash. No flail chest. No crepitus. Resp Effort & Inspection: normal respiratory effort and no respiratory distress Auscultation: clear to auscultation bilaterally Cardio Rate: regular rate Heart sounds: S1 normal heart sound present and S2 normal heart sound present GI Inspection: Yes normal to inspection Palpation (GI): Soft to palpation, nontender, no guarding and not rigid General: Yes no CVA tenderness Back/Spine/Pelvis Back: no CVA tenderness Skin Rashes: no rashes Wounds: no wounds Neuro General: patient oriented x3, tone normal and no meningeal signs Cranial nerves: Yes CN's II-XII intact bilaterally Gait exam (Neuro): Normal gait present Extrem General: Yes normal to inspection Course Course Course Narrative: RME: 58-year-old male presents to ED for right posterior rib flank pain after falling a week ago. Patient states pain on range of motion. Patient evaluated by PCP who did a chest x-ray which was negative. Positive for left CVA flanks. Positive for left posterior rib pain XR ribs LT min 3V w CXR1V IMPRESSION: 1. No displaced lower left rib fracture appreciated. 2. Mild bibasilar streaky opacities, right greater than left. Probable trace right pleural effusion. > will obtain chest CT for further eval and also labs 1520--CT chest wo IV con IMPRESSION: No acute airspace disease. 6 cm lipoma, posterior left upper thorax. Multilevel spondylosis, axial skeleton. Probable adenoma, adrenal glands. Fleischner guidelines were followed. >1628--labs reassuring. LISANDRA on CKD. UA without blood or infection Results discussed with patient including worrisome signs and symptoms and strict return precautions, and when to return to the emergency department. They verbalized understanding and feel safe for discharge at this time. Medical Decision Making Medical Decision Making [facility] Narrative: 58-year-old male with a past medical history of HTN, diabetes, depression, ETOH abuse, calcaneal fracture, presenting to the ED complaining of left flank/ back pain x1 week. On exam vital signs stable, NAD, appears under the influence, reproducible left flank/ rib tenderness without evidence of flail chest or trauma. Abdomen soft and nontender. Concern for rib fracture vs contusion vs pneumonia vs PTX. Renal stone/pyelo on differential plan: X-ray and urine ordered in triage Please refer to course for remaining clinical decision making, interpretation of labs/imaging results, and discussions with consultants and/or family members. Differential Diagnosis Differential Diagnoses: The differential diagnosis associated with the presentation includes As above Admission/Observation Consideration of admission/observation: Escalation of care including admission/observation considered Lab Data [facility] Lab Attestation statement: I reviewed the patient's lab results. 08/01/24 15:35 08/01/24 15:35 Labs: Lab Results 08/01/24 Range/Units 15:35 WBC 4.9 (4.8-10.8) X10*3/uL RBC 4.05 L (4.60-5.80) X10*6/uL Hgb 11.6 L (14.0-18.0) g/dl Hct 33.0 L (42.0-52.0) % MCV 81.5 (80.0-98.0) fL MCH 28.6 (27.0-33.0) pg MCHC 35.2 (31.0-36.0) g/dl RDW 15.2 (11.0-16.0) % Plt Count 261 (160-400) X10*3/uL MPV 9.0 L (9.4-12.4) fL Immature Gran % (Auto) 0.4 (0.0-0.4) % Neut % (Auto) 49.1 (45-73) % Lymph % (Auto) 36.1 (20-40) % [place] % (Auto) 10.8 (2-11) % Eos % (Auto) 2.8 (0-4) % Baso % (Auto) 0.8 (0-2) % Lymph # (Auto) 1.8 (1.2-4.9) X10*3/uL [place] # (Auto) 0.5 (0.1-1.2) X10*3/uL Eos # (Auto) 0.1 (0.0-0.4) X10*3/uL Baso # (Auto) 0.0 (0.0-0.2) X10*3/uL Abs Immat Gran (auto) 0.02 (0.00-0.03) X10*3/uL Absolute Neuts (auto) 2.4 (2.0-8.3) x10*3/uL Absolute Nucleated RBC 0.000 (0.0-0.012) X10*3/uL Nucleated RBC % (auto) 0.0 (0.0-0.2) /100WBC PT 10.2 L (10.9-12.4) SEC INR 0.9 (0.9-1.1) Sodium 141 (135-145) mmol/L Potassium 4.6 (3.3-5.1) mmol/L Chloride 108 (96-108) mmol/L Carbon Dioxide 24 (22-29) mmol/L Anion Gap 14 (12-20) BUN 24 H (9-16) mg/dL Creatinine 1.70 H (0.5-1.4) mg/dL Estim Creat Clear Calc 59.8 Estimated GFR 42 Random Glucose 99 (60-115) mg/dL Calcium 10.1 D (8.4-10.2) mg/dL Total Bilirubin 0.2 (0.0-1.0) mg/dL Direct Bilirubin < 0.2 (0.0-0.5) mg/dL AST 17 (5-37) U/L ALT 17 (0-40) U/L Alkaline Phosphatase 74 (39-117) U/L Total Protein 7.0 (6.5-8.0) g/dL Albumin 4.0 (3.5-5.0) g/dL Urine Color Yellow Urine Appearance Clear Urine pH 5.5 (5.0-9.0) Ur Specific [place] >= 1.030 H (1.005-1.025) Urine Protein 30 (1+) H (Neg-Trace) mg/dL Urine Glucose (UA) Negative (Negative) mg/dL Urine Ketones Trace (Negative) mg/dL Urine Blood Negative (Negative) Urine Nitrite Negative (Negative) Ur Leukocyte Esterase Trace H (Negative) Urine RBC 0-2 (0-2) /HPF Urine WBC 0-5 (0-5) /HPF Ur Squamous Epith Cells 0-2 (0-2) /HPF Urine Bacteria None Seen (None Seen) Hyaline Casts 0-2 (0-2) /LPF Independent Interpretation I performed an independent interpretation of an: Plain X-Ray Radiology Impression Discussion of test interpretation with radiology: I have reviewed the radiologist's reading. External Record Review External record reviewed: Inpatient record, Office record, Outpatient record, Prior outpatient labs, Prior outpatient radiology, Primary care record and Outside ED record Tests considered The following testing was considered but not selected: As above Prescription Management I considered prescription management with: Pain Medication Social Determinants Patient?s care significantly limited by Social Determinants of Health including: Low income, Alcoholism and drug addiction in family, Problems related to primary support group, Problems related to employment and Other Social Determinant of Health Discharge Plan Discharge Clinical Impression: Left flank pain Patient Disposition: Home, Self-Care Instructions: Flank Pain (ED) Additional Instructions: Your blood work shows acute on chronic kidney disease. Please have close follow-up with your doctor in regards to this Your CT scan does not show any fractures or pneumonia. You do have a 6 cm lipoma Please have close follow-up with your primary care doctor Please take Tylenol and Motrin at home as needed for pain In addition apply Lidoderm patches which are numbing patches If pain becomes persistent or unbearable, you have chest pain or shortness of breath, abdominal pain, difficulty or inability to urinate return to the ED Prescriptions: New lidocaine [Lidoderm] 5 % adhesive patch,medicated 1 patch topical DAILY MDD remove after 12 hours PRN (Reason: pain) Qty: 30 0RF Rx Instructions: leave on most painful area for up to 12 hrs No Action metformin 500 mg tablet 2 tab PO BID hydralazine 10 mg tablet 1 tab PO BID verapamil 360 mg capsule,ext rel. pellets 24 hr 1 cap PO BEDTIME quetiapine 200 mg tablet 1 tab PO BEDTIME chlorthalidone 25 mg tablet 1 tab PO DAILY quetiapine 100 mg tablet 1 tab PO BID famotidine 20 mg tablet 1 tab PO BID oxycodone 5 mg Tablet 5 mg PO Q8H PRN (Reason: Pain, Moderate (Pain Scale 4-6) Qty: 12 0RF Rx Instructions: Partial Fill upon patient request. oxycodone-acetaminophen 5-325 mg tablet 1 tab PO Q6H PRN (Reason: pain) 7 Days Qty: 28 0RF Rx Instructions: Partial Fill upon patient request. ibuprofen 800 mg tablet 800 mg PO TID 30 Days Qty: 90 0RF Referrals: Jeet Florez PA [Primary Care Provider] - 3 days Interventions: ED Discharge Assessment Last Done: 08/01/24 16:46 Discharge Date/Time: 08/01/24 16:46 Print Language: [place]
[2024-08-01 15:28] VITALS: BP 128/62; PULSE 75; RESP 17; TEMP 36.4; O2SAT 100
[2024-08-01 15:43] LABS: MANUAL DIFF FLAG NO
[2024-08-01 15:45] LABS: Basophils Percent Auto 0.8 % (0-2); Eosinophils Absolute Auto 0.1 X10*3/uL (0.0-0.4); Eosinophils Percent Auto 2.8 % (0-4); Hemoglobin 11.6 g/dl (14.0-18.0); Imm Gran Abs Auto 0.02 X10*3/uL (0.00-0.03); Imm Gran Pct Auto 0.4 % (0.0-0.4); Lymphocytes Absolute Auto 1.8 X10*3/uL (1.2-4.9); Lymphocytes Percent Auto 36.1 % (20-40); Mean Corpuscular HGB Conc 35.2 g/dl (31.0-36.0); Mean Corpuscular Hemoglobin 28.6 pg (27.0-33.0); Mean Corpuscular Volume 81.5 fL (80.0-98.0); Monocytes Absolute Auto 0.5 X10*3/uL (0.1-1.2); Monocytes Percent Auto 10.8 % (2-11); Neutrophils Absolute Auto 2.4 x10*3/uL (2.0-8.3); Neutrophils Percent Auto 49.1 % (45-73); Platelet Count 261 X10*3/uL (160-400); Red Blood Count 4.05 X10*6/uL (4.60-5.80); Red Cell Distribution Width 15.2 % (11.0-16.0); White Blood Count 4.9 X10*3/uL (4.8-10.8)
[2024-08-01 15:47] LABS: Appearance Urine Clear; Color Urine Yellow; Glucose Urine UA Negative (Negative); Leukocyte Esterase Urine Trace (Negative); Nitrite Urine Negative (Negative); PH 5.5 (5.0-9.0); Specific Gravity - Urine >= 1.030 (1.005-1.025); UMIC TRIGGER UACC YES; Urine Blood Negative (Negative); Urine Ketones Trace mg/dL (Negative); Urine Protein 30 (1+) mg/dL (Neg-Trace)
[2024-08-01 15:50] LABS: Bacteria Urine None Seen (None Seen); Hyaline Casts Urine 0-2 /LPF (0-2); RBC Urine 0-2 /HPF (0-2); Squamous Epithelial Cell Urine 0-2 /HPF (0-2); WBC Urine 0-5 /HPF (0-5)
[2024-08-01 15:54] LABS: INTERNATIONAL NORM RATIO 0.9 (0.9-1.1); Prothrombin Time 10.2 SEC (10.9-12.4)
[2024-08-01 16:02] LABS: Alanine Aminotransferase 17 U/L (0-40); Alkaline Phosphatase 74 U/L (39-117); Anion Gap 14 (12-20); Aspartate Amino Transferase 17 U/L (5-37); Bilirubin Direct < 0.2 mg/dL (0.0-0.5); Bilirubin Total 0.2 mg/dL (0.0-1.0); Blood Urea Nitrogen 24 mg/dL (9-16); Calcium 10.1 mg/dL (8.4-10.2); Carbon Dioxide 24 mmol/L (22-29); Chloride 108 mmol/L (96-108); Creatinine Clr Calc Pharmacy 59.8; Estimated Glomerular Filt Rate 42; Glucose Random 99 mg/dL (60-115); Potassium 4.6 mmol/L (3.3-5.1); Sodium 141 mmol/L (135-145)
[2024-08-01 16:46] VITALS: BP 128/62; PULSE 75; RESP 17; TEMP 36.4; O2SAT 100
== END 2024-08-01 16:46 | disposition home or self-care (01) ==
PROVIDERS: Physician Assistant; Emergency Provider Student in an Organized Health Care Education/Training Program; PCP Physician Assistant Medical
DX: R10.9 Unspecified abdominal pain (principal); M54.9 Dorsalgia, unspecified; R07.89 Other chest pain; I10 Essential (primary) hypertension; E11.9 Type 2 diabetes mellitus without complications; E78.5 Hyperlipidemia, unspecified; Z79.899 Other long term (current) drug therapy
CPT/HCPCS: 36415; 71101; 71250; 80048; 80076; 81001; 85025; 85610; 99283; 99284

== ENCOUNTER → 2024-08-01 14:12 | Outpatient (BNV) | payer MEDICARE, SELFPAY | PROVIDERS: PCP Physician Assistant Medical; Visit Provider Radiology Diagnostic Radiology | DX: R07.9 Chest pain, unspecified (principal) | CPT/HCPCS: 71250 ==

== ENCOUNTER 2024-08-18 02:43 | Emergency (ER) | payer MEDICARE, SELFPAY ==
--- NOTE | 2024-08-18 | ECG_ITS ---
Test Reason : HTN Blood Pressure : / mmHG Vent. Rate : 056 BPM Atrial Rate : 056 BPM P-R Int : 150 ms QRS Dur : 084 ms QT Int : 438 ms P-R-T Axes : 041 001 013 degrees QTc Int : 422 ms Sinus bradycardia Otherwise normal ECG When compared with ECG of 23-DEC-2002 11:48, No significant change was found Referred By: Generic ED Physician Electronically Signed By:DONTE MAGANA MD
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
--- NOTE | ~2024-08-18 | XR_ITS ---
EXAMINATION: XR FOOT, LEFT CLINICAL INFORMATION: injury/pain COMPARISON: Left foot CT 05/17/2024. TECHNIQUE: AP, lateral, and oblique views of the left foot. FINDINGS: The Lisfranc malalignment identified. Posterior neck deformity of the first metatarsal is noted. Arthrodesis of the base of fifth metatarsal and cuboid noted. Possible arthrodesis of the third metatarsal and lateral cuneiform and portions of the base of the second metatarsal and intermediate cuneiform. Cannulated cancellous screws and plate and screw fixation are noted in association with the calcaneus. A pes planus deformity is noted. Periprosthetic lucency is noted in association with a screw in the anterior process of the calcaneus. No focal soft tissue inflammatory changes identified. Partial visualization is made of chronic posttraumatic deformity of the distal fibula and osseous bridging of the distal tibia/fibula. XR/XR foot LT min 3V IMPRESSION: *No acute abnormalities identified. No acute fractures. Nonacute findings: *Status post internal fixation of the calcaneus. Lucency is noted in association with a screw in the anterior process of the calcaneus and may represent loosening. *Osseous bridging of the distal tibia/fibula. *Multiple metatarsal midfoot arthrodeses as noted above. 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 *Pes planus deformity. Electronically signed by: Antony Reeder MD 08/18/2024 04:57 AM [facility]
[2024-08-18 02:48] VITALS: BP 168/94; PULSE 57; O2SAT 98
[2024-08-18 02:51] VITALS: BP 171/91; PULSE 60; RESP 16; TEMP 36.6; O2SAT 99; BMI 44.8
[2024-08-18 03:21] LABS: MANUAL DIFF FLAG NO
[2024-08-18 03:22] LABS: Basophils Percent Auto 0.7 % (0-2); Eosinophils Absolute Auto 0.1 X10*3/uL (0.0-0.4); Eosinophils Percent Auto 0.9 % (0-4); Hematocrit 31.3 % (42.0-52.0); Hemoglobin 11.3 g/dl (14.0-18.0); Imm Gran Abs Auto 0.01 X10*3/uL (0.00-0.03); Imm Gran Pct Auto 0.2 % (0.0-0.4); Lymphocytes Absolute Auto 2.2 X10*3/uL (1.2-4.9); Lymphocytes Percent Auto 40.9 % (20-40); Mean Corpuscular HGB Conc 36.1 g/dl (31.0-36.0); Mean Corpuscular Hemoglobin 28.4 pg (27.0-33.0); Mean Corpuscular Volume 78.6 fL (80.0-98.0); Mean Platelet Volume 8.8 fL (9.4-12.4); Monocytes Absolute Auto 0.5 X10*3/uL (0.1-1.2); Neutrophils Absolute Auto 2.6 x10*3/uL (2.0-8.3); Neutrophils Percent Auto 48.3 % (45-73); Platelet Count 320 X10*3/uL (160-400); Red Blood Count 3.98 X10*6/uL (4.60-5.80); Red Cell Distribution Width 14.6 % (11.0-16.0); White Blood Count 5.4 X10*3/uL (4.8-10.8)
[2024-08-18 03:35] LABS: Alanine Aminotransferase 24 U/L (0-40); Albumin Level 4.4 g/dL (3.5-5.0); Alkaline Phosphatase 85 U/L (39-117); Anion Gap 16 (12-20); Aspartate Amino Transferase 31 U/L (5-37); Bilirubin Total 0.3 mg/dL (0.0-1.0); Blood Urea Nitrogen 17 mg/dL (9-16); Calcium 9.5 mg/dL (8.4-10.2); Carbon Dioxide 21 mmol/L (22-29); Chloride 106 mmol/L (96-108); Creatinine Clr Calc Pharmacy 58.1; Estimated Glomerular Filt Rate 51; Glucose Random 80 mg/dL (60-115); Potassium 4.5 mmol/L (3.3-5.1); Sodium 138 mmol/L (135-145); Total Protein 7.3 g/dL (6.5-8.0)
[2024-08-18 03:42] LABS: Troponin-I High Sensitivity < 2.7 ng/L (<3.5-35.0)
[2024-08-18 04:00] VITALS: BP 182/106; PULSE 57; RESP 16; O2SAT 95
--- NOTE | 2024-08-18 04:00 | PC.NURSE ---
pt here for approx 1 hour now waiting for primary eval by ed provider, states he requested food/drinks, not to this RN, primary tech or other staff near patients room. pt was on cardiac specialist and stated to other RN he ripped it off and is requesting to speak to set up and charger. PD also at bedside. pt had previously requested urinal which was provided. other staff when walking by reported patient yelled at them either get your ass in here or go home. talent acquisition assistant notified.
--- NOTE | 2024-08-18 04:19 | PC.NURSE ---
Dr. Jason made aware of bp.
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
[2024-08-18] MEDS: VerapamiL HCL SR 180 MG TABLET.ER 360 MG PO (05:10)
[2024-08-18] MEDS: Losartan Potassium 25 MG TABLET PO (05:11)
[2024-08-18] MEDS: Acetaminophen 325 MG TABLET 975 MG PO (05:11)
[2024-08-18] MEDS: QUEtiapine Fumarate 100 MG TABLET PO (05:12)
--- NOTE | 2024-08-18 05:18 | PC.NURSE ---
Pt medicated by this credit charge authorizer, awaiting hydralazine from nursing supervisor [employer], not stocked in ED pyxis.
[2024-08-18] MEDS: hydrALAZINE HCl 10 MG TABLET PO (05:32)
[2024-08-18 06:00] VITALS: BP 179/102; PULSE 97; RESP 16; TEMP 36.8; O2SAT 97
[2024-08-18 06:18] VITALS: BP 179/102; PULSE 97; RESP 16; TEMP 36.8; O2SAT 97
== END 2024-08-18 06:19 | disposition home or self-care (01) ==
PROVIDERS: Emergency Provider Emergency Medicine Emergency Medical Services
DX: S90.32XA Contusion of left foot, initial encounter (principal); S70.01XA Contusion of right hip, initial encounter; R00.1 Bradycardia, unspecified; R51.9 Headache, unspecified; M25.551 Pain in right hip; M79.672 Pain in left foot; I10 Essential (primary) hypertension; X58.XXXA Exposure to other specified factors, initial encounter; Y93.89 Activity, other specified; Y92.89 Other specified places as the place of occurrence of the external cause; Y99.8 Other external cause status; Z79.899 Other long term (current) drug therapy
CPT/HCPCS: 36415; 73502; 73630; 80053; 84484; 85025; 93005; 99283; 99285

== ENCOUNTER → 2024-08-18 02:58 | Outpatient (BNV) | payer MEDICARE, SELFPAY | PROVIDERS: Emergency Provider Emergency Medicine Emergency Medical Services; Visit Provider Internal Medicine Cardiovascular Disease | DX: R00.1 Bradycardia, unspecified (principal) | CPT/HCPCS: 93010 ==